=== PATIENT | female | born 1960 | race Caucasian/White ===

== ENCOUNTER → 2016-06-23 | Outpatient (CLI) | payer OTHER ==
[~2016-06-23] MED LIST: ACTOS15 M1 PO; ALBUTEROL0.09 MG/A2 IH; ANAPROX DS550 MG PO; ASPIRIN81 M1 PO; ATIVAN0.5 MG; ATIVAN0.5 MG PO; ATIVAN1 MG PO; BACTRIM DS 8001 TA1 PO; CIPRO500 MG PO; CLINDAMYCIN HC300 MG PO; DARVOCET N 1001 TAB PO; DELTASONE20 M1 PO; DUONEB 3 MG/3 ML3 M1 INH; EES400 MG PO; FLEXERIL10 MG PO; FLEXERIL5 MG; FLEXERIL5 MG PO; FLONASE ALLERG9.9 ML NS; HYDROCODONE BIT1 T11 PO; LANTUS SOLOS100 U/M1 SC; LANTUS100 U/ML SC; LISINOPRIL10 MG; LOMOTIL 0.025 M1 TA1 PO; LORAZEPAM1 MG PO; MACROBID100 M1 PO; MEDROL DOSEPAK4 MG PO; METFORMIN1000 MG PO; MONISTAT MR; MOTRIN600 MG PO; MOTRIN800 MG PO; NAPROSYN500 MG PO; NEURONTIN300 MG PO; NORCO 325 MG-51 TAB PO; NORCO 5-325 TA1 EACH PO; NOVOLOG FLEX100 U/ML SC; PEPCID20 MG PO; PRAVACHOL40 MG PO; PREDNICOT20 MG PO; PREDNISONE10 MG PO; PRILOSEC20 MG PO; ROBITUSSIN AC 110 ML PO; SIMVASTATIN80 MG; TORADOL10 MG PO; TRAMADOL HCL50 MG PO; ULTRAM50 MG PO; VENTOLIN H0.09 MG/AC INH; VICODIN 5/500 505 MG PO; ZITHROMAX Z PA250 MG PO; ZOFRAN ODT4 MG SL
== END | disposition home or self-care (01) ==
LOC: RAD 11:08
DX: B86 Scabies (principal); E11.9 Type 2 diabetes mellitus without complications; J40 Bronchitis, not specified as acute or chronic; F17.200 Nicotine dependence, unspecified, uncomplicated

== ENCOUNTER 2016-09-07 11:34 | Emergency (ER) | payer OTHER ==
[~2016-09-07] VITALS: Wt 81.6 kg
[2016-09-07 11:57] LABS: BILIRUBIN NEGATIVE (NEGATIVE); BLOOD TRACE-INTACT (NEGATIVE); CLARITY SL CLOUDY (CLEAR); COLOR YELLOW (YELLOW); GLUCOSE NEGATIVE (NEGATIVE); KETONE NEGATIVE (NEGATIVE); LEUKO ESTERASE 2+ (NEGATIVE); NITRITE NEGATIVE (NEGATIVE); PH 5.5 (5.0-9.0); PROTEIN NEGATIVE (NEGATIVE); SPECIFIC GRAVITY 1.015 (1.005-1.030); UROBILINOGEN 0.2 E.U./dl (0.2-1.0)
[2016-09-07 12:04] LABS: BACTERIA 2+; EPITHELIAL CELLS 21-30; URINE REFLEX COMMENT YES (NO); WBC 31-40 wbc/hpf (0-5)
[2016-09-07 12:11] LABS: BASO % 0.1 % (0.0-1.0); EOS # 0.2 10*3/uL (0.0-0.4); EOS % 2.4 % (1.0-4.0); HEMATOCRIT 40.6 % (37.0-47.0); LYMPH # 3.6 10*3/uL (1.3-4.4); LYMPH % 37.8 % (27.0-41.0); MEAN CORPUSCULAR HGB 27.9 pg (27.0-31.0); MEAN CORPUSCULAR HGB CONC 34.5 g/dl (33.0-37.0); MEAN PLATELET VOLUME 8.9 fl (9.6-12.3); MONO # 0.4 10*3/uL (0.1-1.0); MONO % 4.4 % (3.0-9.0); NEUT # 5.2 10*3/uL (2.3-7.9); NEUT % 54.9 % (47.0-73.0); PLATELET COUNT AUTOMATED 261 10*3/uL (130-400); RED BLOOD COUNT 5.01 10*6/uL (4.10-5.10); RED CELL DISTRI WIDTH 14.1 % (0-14.5); WHITE BLOOD COUNT 9.4 10*3/uL (4.8-10.8)
[2016-09-07 12:31] LABS: ALBUMIN 3.4 gm/dl (3.1-4.5); ALKALINE PHOSPHATASE 69 U/L (45-117); BILIRUBIN, TOTAL 0.3 mg/dl (0.2-1.0); BUN 6 mg/dl (7-24); CARBON DIOXIDE 26 mmol/L (21-32); CHLORIDE 103 mmol/L (98-107); EST GLOM FILT AFRICAN AMERICAN > 60 ml/min; GLUCOSE 187 mg/dL (65-99); POTASSIUM 3.6 mmol/L (3.5-5.1); SGOT/AST 10 IU/L (3-35); SGPT/ALT 14 U/L (12-78); SODIUM 140 mmol/L (136-145); TOTAL PROTEIN 6.4 gm/dL (6.4-8.2)
== END 2016-09-07 14:58 | disposition home or self-care (01) ==
LOC: ED 11:34
PROVIDERS: Emergency Medicine; Registered Nurse
DX: A08.4 Viral intestinal infection, unspecified (principal); N28.89 Other specified disorders of kidney and ureter; F17.200 Nicotine dependence, unspecified, uncomplicated; Z79.82 Long term (current) use of aspirin; Z90.49 Acquired absence of other specified parts of digestive tract; Z88.0 Allergy status to penicillin; Z88.8 Allergy status to other drugs, medicaments and biological substances

== ENCOUNTER → 2016-09-20 | Outpatient (CLI) | payer OTHER | END | disposition home or self-care (01) | LOC: US 14:09 | DX: N28.89 Other specified disorders of kidney and ureter (principal) ==

== ENCOUNTER 2016-10-03 14:28 | Emergency (ER) | payer OTHER ==
[~2016-10-03] VITALS: Wt 83.0 kg
[2016-10-03 15:17] LABS: BASO % 0.2 % (0.0-1.0); EOS # 0.2 10*3/uL (0.0-0.4); EOS % 2.2 % (1.0-4.0); HEMATOCRIT 43.3 % (37.0-47.0); HEMOGLOBIN 14.7 g/dl (12.0-16.0); LYMPH # 4.9 10*3/uL (1.3-4.4); LYMPH % 46.7 % (27.0-41.0); MEAN CELL VOLUME 81.1 fl (81.0-99.0); MEAN CORPUSCULAR HGB 27.5 pg (27.0-31.0); MEAN CORPUSCULAR HGB CONC 33.9 g/dl (33.0-37.0); MEAN PLATELET VOLUME 9.1 fl (9.6-12.3); MONO # 0.5 10*3/uL (0.1-1.0); MONO % 4.5 % (3.0-9.0); NEUT # 4.9 10*3/uL (2.3-7.9); NEUT % 46.2 % (47.0-73.0); PLATELET COUNT AUTOMATED 316 10*3/uL (130-400); RED BLOOD COUNT 5.34 10*6/uL (4.10-5.10); RED CELL DISTRI WIDTH 13.7 % (0-14.5); WHITE BLOOD COUNT 10.5 10*3/uL (4.8-10.8)
[2016-10-03 15:31] LABS: ALBUMIN 3.5 gm/dl (3.1-4.5); ALKALINE PHOSPHATASE 73 U/L (45-117); BILIRUBIN, TOTAL 0.3 mg/dl (0.2-1.0); BUN 6 mg/dl (7-24); CARBON DIOXIDE 27 mmol/L (21-32); CHLORIDE 103 mmol/L (98-107); EST GLOM FILT AFRICAN AMERICAN > 60 ml/min; GLUCOSE 175 mg/dL (65-99); POTASSIUM 3.5 mmol/L (3.5-5.1); SGOT/AST 9 IU/L (3-35); SGPT/ALT 12 U/L (12-78); SODIUM 143 mmol/L (136-145); TOTAL PROTEIN 7.1 gm/dL (6.4-8.2)
[2016-10-03 15:31] LABS: BILIRUBIN NEGATIVE (NEGATIVE); BLOOD TRACE-INTACT (NEGATIVE); CLARITY CLEAR (CLEAR); COLOR YELLOW (YELLOW); GLUCOSE NEGATIVE (NEGATIVE); KETONE NEGATIVE (NEGATIVE); LEUKO ESTERASE 2+ (NEGATIVE); NITRITE NEGATIVE (NEGATIVE); PH 5.5 (5.0-9.0); PROTEIN NEGATIVE (NEGATIVE); SPECIFIC GRAVITY <= 1.005 (1.005-1.030); UROBILINOGEN 0.2 E.U./dl (0.2-1.0)
[2016-10-03 15:45] LABS: BACTERIA 1+; URINE REFLEX COMMENT YES (NO)
[2016-10-03] MEDS ORDERED: CIPRO500 MG PO (15:59)
== END 2016-10-03 16:03 | disposition home or self-care (01) ==
LOC: ED 14:28
PROVIDERS: Physician Assistant
DX: N30.01 Acute cystitis with hematuria (principal); F17.200 Nicotine dependence, unspecified, uncomplicated; Z90.710 Acquired absence of both cervix and uterus; Z98.890 Other specified postprocedural states; Z79.82 Long term (current) use of aspirin; Z79.899 Other long term (current) drug therapy; Z88.8 Allergy status to other drugs, medicaments and biological substances; Z88.0 Allergy status to penicillin; Z88.1 Allergy status to other antibiotic agents

== ENCOUNTER → 2016-10-10 | Outpatient (CLI) | payer OTHER | END | disposition home or self-care (01) | LOC: MRI 13:33 | DX: R10.33 Periumbilical pain (principal); R10.32 Left lower quadrant pain; N28.9 Disorder of kidney and ureter, unspecified; E11.9 Type 2 diabetes mellitus without complications ==

== ENCOUNTER → 2016-11-02 | Outpatient (CLI) | payer OTHER ==
[2016-11-02 12:27] LABS: BASO % 0.1 % (0.0-1.0); EOS # 0.2 10*3/uL (0.0-0.4); EOS % 2.6 % (1.0-4.0); HEMATOCRIT 43.1 % (37.0-47.0); HEMOGLOBIN 14.4 g/dl (12.0-16.0); LYMPH # 3.4 10*3/uL (1.3-4.4); LYMPH % 45.7 % (27.0-41.0); MEAN CELL VOLUME 80.9 fl (81.0-99.0); MEAN CORPUSCULAR HGB CONC 33.4 g/dl (33.0-37.0); MEAN PLATELET VOLUME 9.5 fl (9.6-12.3); MONO # 0.4 10*3/uL (0.1-1.0); MONO % 4.7 % (3.0-9.0); NEUT # 3.5 10*3/uL (2.3-7.9); NEUT % 46.8 % (47.0-73.0); PLATELET COUNT AUTOMATED 226 10*3/uL (130-400); RED BLOOD COUNT 5.33 10*6/uL (4.10-5.10); RED CELL DISTRI WIDTH 13.9 % (0-14.5); WHITE BLOOD COUNT 7.4 10*3/uL (4.8-10.8)
[2016-11-02 12:42] LABS: ALKALINE PHOSPHATASE 71 U/L (45-117); BUN 9 mg/dl (7-24); EST GLOM FILT AFRICAN AMERICAN > 60 ml/min; LDH 147 U/L (84-246); SGOT/AST 8 IU/L (3-35); SGPT/ALT 16 U/L (12-78)
== END | disposition home or self-care (01) ==
LOC: LAB 11:54
DX: C69.31 Malignant neoplasm of right choroid (principal)

== ENCOUNTER → 2016-11-19 | Outpatient (CLI) | payer OTHER ==
[2016-11-19 10:48] LABS: POTASSIUM 3.4 mmol/L (3.5-5.1)
== END | disposition home or self-care (01) ==
LOC: LAB 09:51
PROVIDERS: Ophthalmology
DX: C69.31 Malignant neoplasm of right choroid (principal)

== ENCOUNTER → 2016-11-22 | Outpatient (CLI) | payer OTHER ==
[2016-11-22 12:25] LABS: BASO % 0.1 % (0.0-1.0); EOS # 0.2 10*3/uL (0.0-0.4); EOS % 2.4 % (1.0-4.0); HEMATOCRIT 41.1 % (37.0-47.0); HEMOGLOBIN 13.5 g/dl (12.0-16.0); LYMPH # 3.5 10*3/uL (1.3-4.4); LYMPH % 41.5 % (27.0-41.0); MEAN CELL VOLUME 83.9 fl (81.0-99.0); MEAN CORPUSCULAR HGB 27.6 pg (27.0-31.0); MEAN CORPUSCULAR HGB CONC 32.8 g/dl (33.0-37.0); MEAN PLATELET VOLUME 9.1 fl (9.6-12.3); MONO # 0.3 10*3/uL (0.1-1.0); MONO % 3.8 % (3.0-9.0); NEUT # 4.3 10*3/uL (2.3-7.9); PLATELET COUNT AUTOMATED 229 10*3/uL (130-400); RED CELL DISTRI WIDTH 14.6 % (0-14.5); WHITE BLOOD COUNT 8.4 10*3/uL (4.8-10.8)
[2016-11-22 12:51] LABS: PROTHROMBIN TIME 10.7 SECONDS (9.0-12.4)
[2016-11-22 12:52] LABS: ALBUMIN 3.4 gm/dl (3.1-4.5); ALKALINE PHOSPHATASE 57 U/L (45-117); BILIRUBIN, DIRECT < 0.1 mg/dL (0.0-0.2); BILIRUBIN, TOTAL 0.3 mg/dl (0.2-1.0); BUN 9 mg/dl (7-24); CARBON DIOXIDE 28 mmol/L (21-32); CHLORIDE 107 mmol/L (98-107); EST GLOM FILT AFRICAN AMERICAN > 60 ml/min; GLUCOSE 142 mg/dL (65-99); POTASSIUM 3.7 mmol/L (3.5-5.1); SGOT/AST 8 IU/L (3-35); SGPT/ALT 13 U/L (12-78); SODIUM 145 mmol/L (136-145); TOTAL PROTEIN 6.6 gm/dL (6.4-8.2)
== END | disposition home or self-care (01) ==
LOC: LAB 11:51
PROVIDERS: Internal Medicine
DX: Z01.818 Encounter for other preprocedural examination (principal); E11.9 Type 2 diabetes mellitus without complications; J44.9 Chronic obstructive pulmonary disease, unspecified; K76.0 Fatty (change of) liver, not elsewhere classified; Z86.73 Personal history of transient ischemic attack (TIA), and cerebral infarction without residual deficits; Z87.891 Personal history of nicotine dependence

== ENCOUNTER → 2016-11-23 | Outpatient (CLI) | payer OTHER ==
--- NOTE | ~2016-11-23 | PF ---
[place], [place] PULMONARY FUNCTION TEST NAME: VIKTORIYA HILLS UNIT #: [id number] ROOM: DOCTOR: JOHN COELLO MD,RAUL BIRTHDATE: [birth year] DOS: 11/23/2016 The test was ordered by Dr. Codi Carmona for surgical clearance with history of COPD. HISTORY: The patient reported as 56-year-old female, height of 62 inches, weight 189 pounds. The patient reported symptoms of dyspnea with exertion, productive cough, rare wheezing, tobacco use, 2 packs of cigarettes per day for 44 years also noted. SPIROMETRY: The FVC was recorded 1.99 liters, 64% predicted value, moderately decreased without changes postbronchodilator. The FEV1 noted 1.64 liters, 68% predicted value, moderately decreased without any significant post-bronchodilator change. Flow volume was suggestive of obstructive airway pattern. LUNG VOLUME: Thoracic gas volume recorded as 105%, residual volume 109%, total lung capacity 83%. RV/TLC ratio 134% consistent with mild airtrapping. Otherwise lung volumes were noted normal. The patient's lung diffusion noted mild to moderate reduction without correction of carbon monoxide or hemoglobin values. The patient's airway resistance and passive conductance noted normal with partial improvement post-bronchodilator test. FINAL IMPRESSION: 1. The test was suggestive of possibility of mild reversible obstructive lung disease such as bronchial asthma. 2. Mild to moderate reduction in lung diffusion to be clinically correlated with the patient's clinical history for this patient and radiology data for this patient. RAUL LOPEZ MD CM:PFREPORT:PULMONARY FUNCTION TEST [id number] RAUL COELLO MD
== END | disposition home or self-care (01) ==
LOC: CP 11:06
DX: Z01.818 Encounter for other preprocedural examination (principal); J44.9 Chronic obstructive pulmonary disease, unspecified

== ENCOUNTER → 2016-11-26 | Outpatient (CLI) | payer OTHER | END | disposition home or self-care (01) | LOC: CT 01:56 | DX: Z01.818 Encounter for other preprocedural examination (principal); C69.31 Malignant neoplasm of right choroid; J44.9 Chronic obstructive pulmonary disease, unspecified; I25.10 Atherosclerotic heart disease of native coronary artery without angina pectoris ==

== ENCOUNTER 2017-03-27 11:43 | Emergency (ER) | payer OTHER ==
[~2017-03-27] VITALS: Wt 77.1 kg
[2017-03-27 12:01] LABS: BILIRUBIN NEGATIVE (NEGATIVE); BLOOD TRACE-INTACT (NEGATIVE); CLARITY CLEAR (CLEAR); COLOR YELLOW (YELLOW); GLUCOSE NEGATIVE (NEGATIVE); KETONE NEGATIVE (NEGATIVE); LEUKO ESTERASE 1+ (NEGATIVE); NITRITE NEGATIVE (NEGATIVE); SPECIFIC GRAVITY <= 1.005 (1.005-1.030); UROBILINOGEN 0.2 E.U./dl (0.2-1.0)
[2017-03-27 12:06] LABS: BACTERIA TRACE
[2017-03-27 12:11] LABS: BASO % 0.2 % (0.0-1.0); EOS # 0.2 10*3/uL (0.0-0.4); EOS % 2.3 % (1.0-4.0); HEMATOCRIT 40.5 % (37.0-47.0); HEMOGLOBIN 13.1 g/dl (12.0-16.0); LYMPH # 2.8 10*3/uL (1.3-4.4); LYMPH % 34.1 % (27.0-41.0); MEAN CELL VOLUME 85.3 fl (81.0-99.0); MEAN CORPUSCULAR HGB 27.6 pg (27.0-31.0); MEAN CORPUSCULAR HGB CONC 32.3 g/dl (33.0-37.0); MEAN PLATELET VOLUME 9.1 fl (9.6-12.3); MONO # 0.4 10*3/uL (0.1-1.0); MONO % 5.2 % (3.0-9.0); NEUT # 4.7 10*3/uL (2.3-7.9); NEUT % 57.7 % (47.0-73.0); PLATELET COUNT AUTOMATED 246 10*3/uL (130-400); RED BLOOD COUNT 4.75 10*6/uL (4.10-5.10); WHITE BLOOD COUNT 8.1 10*3/uL (4.8-10.8)
[2017-03-27 12:27] LABS: ALBUMIN 3.2 gm/dl (3.1-4.5); ALKALINE PHOSPHATASE 72 U/L (45-117); BUN 14 mg/dl (7-24); CHLORIDE 106 mmol/L (98-107); CREATININE 0.62 mg/dL (0.55-1.02); POTASSIUM 3.6 mmol/L (3.5-5.1); SGOT/AST 9 IU/L (3-35); SGPT/ALT 13 U/L (12-78); SODIUM 140 mmol/L (136-145); TOTAL PROTEIN 6.9 gm/dL (6.4-8.2)
[2017-03-27] MEDS ORDERED: Bactrim DS PO (13:29)
[2017-03-27] MEDS ORDERED: 'PARAFON FORTE500 M1 PO (13:29)
[2017-03-27] MEDS ORDERED: PYRIDIUM200 M1 PO (13:29)
== END 2017-03-27 14:29 | disposition home or self-care (01) ==
LOC: ED 11:43
PROVIDERS: Nurse Practitioner Family
DX: C64.1 Malignant neoplasm of right kidney, except renal pelvis (principal); N39.0 Urinary tract infection, site not specified; F17.200 Nicotine dependence, unspecified, uncomplicated; K21.9 Gastro-esophageal reflux disease without esophagitis; J44.9 Chronic obstructive pulmonary disease, unspecified; Z79.82 Long term (current) use of aspirin; Z90.49 Acquired absence of other specified parts of digestive tract; Z88.0 Allergy status to penicillin

== ENCOUNTER 2017-05-11 14:51 | Emergency (ER) | payer OTHER ==
[~2017-05-11] VITALS: Ht 157.4 cm; Wt 79.4 kg
[~2017-05-11 14:51] MED LIST changes: +'PARAFON FORTE500 M1 PO; +Bactrim DS PO; +PYRIDIUM200 M1 PO
[2017-05-11] MEDS ORDERED: CYCLOBENZAPRINE5 M3 PO (16:10)
== END 2017-05-11 16:30 | disposition home or self-care (01) ==
LOC: ED 14:51
DX: S39.012A Strain of muscle, fascia and tendon of lower back, initial encounter (principal); F17.200 Nicotine dependence, unspecified, uncomplicated; Z90.710 Acquired absence of both cervix and uterus; Z98.890 Other specified postprocedural states; Z79.82 Long term (current) use of aspirin; Z79.899 Other long term (current) drug therapy; Z88.8 Allergy status to other drugs, medicaments and biological substances; Z88.0 Allergy status to penicillin; Z88.1 Allergy status to other antibiotic agents; X50.1XXA Overexertion from prolonged static or awkward postures, initial encounter; Y93.89 Activity, other specified; Y92.89 Other specified places as the place of occurrence of the external cause; Y99.9 Unspecified external cause status

== ENCOUNTER 2017-09-05 14:28 | Emergency (ER) | payer OTHER ==
[~2017-09-05] VITALS: Ht 157.4 cm; Wt 81.6 kg
[~2017-09-05 14:28] MED LIST changes: +CYCLOBENZAPRINE5 M3 PO
[2017-09-05 14:46] LABS: BILIRUBIN NEGATIVE (NEGATIVE); BLOOD NEGATIVE (NEGATIVE); CLARITY CLOUDY (CLEAR); COLOR YELLOW (YELLOW); GLUCOSE TRACE (NEGATIVE); KETONE NEGATIVE (NEGATIVE); LEUKO ESTERASE 1+ (NEGATIVE); NITRITE NEGATIVE (NEGATIVE); SPECIFIC GRAVITY 1.025 (1.005-1.030); UROBILINOGEN 0.2 E.U./dl (0.2-1.0)
[2017-09-05 14:54] LABS: BACTERIA 3+; EPITHELIAL CELLS 55-60
[2017-09-05] MEDS ORDERED: MACROBID100 M1 PO (14:57)
== END 2017-09-05 15:06 | disposition home or self-care (01) ==
LOC: ED 14:28
PROVIDERS: Physician Assistant
DX: S30.1XXA Contusion of abdominal wall, initial encounter (principal); N30.00 Acute cystitis without hematuria; F17.200 Nicotine dependence, unspecified, uncomplicated; Z88.0 Allergy status to penicillin; Z88.1 Allergy status to other antibiotic agents; Z88.8 Allergy status to other drugs, medicaments and biological substances; Z79.899 Other long term (current) drug therapy; Z79.82 Long term (current) use of aspirin; W50.1XXA Accidental kick by another person, initial encounter; Y93.89 Activity, other specified; Y92.89 Other specified places as the place of occurrence of the external cause; Y99.8 Other external cause status

== ENCOUNTER 2018-04-14 14:08 | Emergency (ER) | payer OTHER ==
[~2018-04-14] VITALS: Ht 157.4 cm; Wt 81.6 kg
[2018-04-14 15:08] LABS: BILIRUBIN NEGATIVE (NEGATIVE); BLOOD NEGATIVE (NEGATIVE); CLARITY CLEAR (CLEAR); COLOR YELLOW (YELLOW); GLUCOSE NEGATIVE (NEGATIVE); KETONE NEGATIVE (NEGATIVE); LEUKO ESTERASE 2+ (NEGATIVE); NITRITE NEGATIVE (NEGATIVE); UROBILINOGEN 0.2 E.U./dl (0.2-1.0)
[2018-04-14 15:27] LABS: RBC 0-2 rbc/hpf (0-2); WBC 21-30 wbc/hpf (0-5)
[2018-04-14 15:28] LABS: BACTERIA 2+; EPITHELIAL CELLS 20-25
[2018-04-14] MEDS ORDERED: MACROBID100 M1 PO (16:21)
[2018-04-14] MEDS ORDERED: TRAMADOL HCL50 MG PO (16:21)
[2018-04-14] MEDS ORDERED: NORCO 5-325 TA1 EACH PO (16:42)
== END 2018-04-14 16:29 | disposition home or self-care (01) ==
LOC: ED 14:08
PROVIDERS: Nurse Practitioner Family
DX: S29.012A Strain of muscle and tendon of back wall of thorax, initial encounter (principal); N39.0 Urinary tract infection, site not specified; G89.29 Other chronic pain; J44.9 Chronic obstructive pulmonary disease, unspecified; K21.9 Gastro-esophageal reflux disease without esophagitis; F17.200 Nicotine dependence, unspecified, uncomplicated; Z88.0 Allergy status to penicillin; Z88.1 Allergy status to other antibiotic agents; Z88.8 Allergy status to other drugs, medicaments and biological substances; Z79.2 Long term (current) use of antibiotics; Z79.82 Long term (current) use of aspirin; Z79.899 Other long term (current) drug therapy; Z79.84 Long term (current) use of oral hypoglycemic drugs; Z90.49 Acquired absence of other specified parts of digestive tract; Z90.710 Acquired absence of both cervix and uterus; Z85.528 Personal history of other malignant neoplasm of kidney; X58.XXXA Exposure to other specified factors, initial encounter; Y93.89 Activity, other specified; Y92.098 Other place in other non-institutional residence as the place of occurrence of the external cause; Y99.8 Other external cause status

== ENCOUNTER → 2018-06-20 | Outpatient (CLI) | payer OTHER ==
[2018-06-20 16:20] LABS: BASO % 0.1 % (0.0-1.0); EOS # 0.1 10*3/uL (0.0-0.4); EOS % 1.7 % (1.0-4.0); HEMATOCRIT 40.4 % (37.0-47.0); LYMPH # 2.4 10*3/uL (1.3-4.4); LYMPH % 32.6 % (27.0-41.0); MEAN CELL VOLUME 86.5 fl (81.0-99.0); MEAN CORPUSCULAR HGB 27.8 pg (27.0-31.0); MEAN CORPUSCULAR HGB CONC 32.2 g/dl (33.0-37.0); MEAN PLATELET VOLUME 9.4 fl (9.6-12.3); MONO # 0.4 10*3/uL (0.1-1.0); MONO % 5.2 % (3.0-9.0); NEUT # 4.5 10*3/uL (2.3-7.9); NEUT % 59.9 % (47.0-73.0); NUCLEATED RED BLOOD CELL 0.3 % (0.0-0.0); PLATELET COUNT AUTOMATED 289 10*3/uL (130-400); RED BLOOD COUNT 4.67 10*6/uL (4.10-5.10); RED CELL DISTRI WIDTH 16.1 % (0-14.5); WHITE BLOOD COUNT 7.5 10*3/uL (4.8-10.8)
== END | disposition home or self-care (01) ==
LOC: LAB 15:53
PROVIDERS: Internal Medicine Nephrology
DX: K92.1 Melena (principal)

== ENCOUNTER 2018-06-24 14:25 | Emergency (ER) | payer OTHER ==
[~2018-06-24] VITALS: Ht 157.4 cm; Wt 90.7 kg
[2018-06-24 15:03] LABS: BILIRUBIN NEGATIVE (NEGATIVE); BLOOD TRACE-INTACT (NEGATIVE); CLARITY CLEAR (CLEAR); COLOR YELLOW (YELLOW); GLUCOSE NEGATIVE (NEGATIVE); KETONE NEGATIVE (NEGATIVE); LEUKO ESTERASE 2+ (NEGATIVE); NITRITE NEGATIVE (NEGATIVE); PH 5.5 (5.0-9.0); UROBILINOGEN 0.2 E.U./dl (0.2-1.0)
[2018-06-24 15:52] LABS: BACTERIA TRACE; EPITHELIAL CELLS TNTC
[2018-06-24] MEDS ORDERED: NORCO 5-325 TA1 EACH PO (16:34)
[2018-06-24] MEDS ORDERED: MACROBID100 M1 PO ×2 (16:35→16:43)
== END 2018-06-24 16:37 | disposition home or self-care (01) ==
LOC: ED 14:25
PROVIDERS: Nurse Practitioner Family
DX: M43.16 Spondylolisthesis, lumbar region (principal); N39.0 Urinary tract infection, site not specified; M54.2 Cervicalgia; G89.29 Other chronic pain; J44.9 Chronic obstructive pulmonary disease, unspecified; K21.9 Gastro-esophageal reflux disease without esophagitis; Z88.8 Allergy status to other drugs, medicaments and biological substances; Z88.0 Allergy status to penicillin; Z88.1 Allergy status to other antibiotic agents; Z79.2 Long term (current) use of antibiotics; Z79.82 Long term (current) use of aspirin; Z79.899 Other long term (current) drug therapy; Z79.84 Long term (current) use of oral hypoglycemic drugs; Z90.710 Acquired absence of both cervix and uterus; Z90.49 Acquired absence of other specified parts of digestive tract

== ENCOUNTER 2018-07-01 15:06 | Emergency (ER) | payer OTHER ==
[~2018-07-01] VITALS: Ht 157.4 cm; Wt 90.7 kg
[2018-07-01 15:43] LABS: BASO % 0.2 % (0.0-1.0); EOS # 0.2 10*3/uL (0.0-0.4); EOS % 1.9 % (1.0-4.0); HEMATOCRIT 40.4 % (37.0-47.0); HEMOGLOBIN 12.8 g/dl (12.0-16.0); LYMPH # 2.9 10*3/uL (1.3-4.4); LYMPH % 34.2 % (27.0-41.0); MEAN CELL VOLUME 87.6 fl (81.0-99.0); MEAN CORPUSCULAR HGB 27.8 pg (27.0-31.0); MEAN CORPUSCULAR HGB CONC 31.7 g/dl (33.0-37.0); MEAN PLATELET VOLUME 9.4 fl (9.6-12.3); MONO # 0.4 10*3/uL (0.1-1.0); MONO % 4.9 % (3.0-9.0); NEUT # 4.9 10*3/uL (2.3-7.9); NEUT % 58.4 % (47.0-73.0); PLATELET COUNT AUTOMATED 378 10*3/uL (130-400); RED BLOOD COUNT 4.61 10*6/uL (4.10-5.10); RED CELL DISTRI WIDTH 15.9 % (0-14.5); WHITE BLOOD COUNT 8.3 10*3/uL (4.8-10.8)
[2018-07-01 15:49] LABS: BILIRUBIN NEGATIVE (NEGATIVE); BLOOD TRACE-INTACT (NEGATIVE); CLARITY CLEAR (CLEAR); COLOR YELLOW (YELLOW); GLUCOSE NEGATIVE (NEGATIVE); KETONE NEGATIVE (NEGATIVE); LEUKO ESTERASE 2+ (NEGATIVE); NITRITE NEGATIVE (NEGATIVE); SPECIFIC GRAVITY <= 1.005 (1.005-1.030); UROBILINOGEN 0.2 E.U./dl (0.2-1.0)
[2018-07-01 16:00] LABS: BACTERIA 2+; RBC 0-2 rbc/hpf (0-2); WBC 16-20 wbc/hpf (0-5)
[2018-07-01 16:00] LABS: ALBUMIN 3.1 gm/dl (3.1-4.5); ALKALINE PHOSPHATASE 88 U/L (45-117); BUN 5 mg/dl (7-24); CHLORIDE 103 mmol/L (98-107); CREATININE 0.58 mg/dL (0.55-1.02); LIPASE 54 U/L (73-393); POTASSIUM 3.9 mmol/L (3.5-5.1); SGOT/AST 9 IU/L (3-35); SGPT/ALT 14 U/L (12-78); SODIUM 138 mmol/L (136-145)
[2018-07-01] MEDS ORDERED: MEDROL DOSEPAK4 MG PO (18:14)
== END 2018-07-01 18:25 | disposition home or self-care (01) ==
LOC: ED 15:06
PROVIDERS: Physician Assistant
DX: N28.9 Disorder of kidney and ureter, unspecified (principal); R10.12 Left upper quadrant pain; M54.6 Pain in thoracic spine; M54.5 Low back pain; F17.200 Nicotine dependence, unspecified, uncomplicated; Z88.0 Allergy status to penicillin; Z88.1 Allergy status to other antibiotic agents; Z88.8 Allergy status to other drugs, medicaments and biological substances; Z79.899 Other long term (current) drug therapy; Z79.82 Long term (current) use of aspirin; Z90.49 Acquired absence of other specified parts of digestive tract; Z85.528 Personal history of other malignant neoplasm of kidney

== ENCOUNTER → 2018-10-22 | Outpatient (CLI) | payer OTHER ==
[~2018-10-22] MED LIST changes: +SEPTDS PO
[2018-10-22 15:45] LABS: CREATININE 0.75 mg/dL (0.55-1.02)
== END | disposition home or self-care (01) ==
LOC: LAB 14:53
PROVIDERS: Radiology Diagnostic Radiology
DX: N28.89 Other specified disorders of kidney and ureter (principal)

== ENCOUNTER → 2018-10-23 | Outpatient (CLI) | payer OTHER | END | disposition home or self-care (01) | LOC: CT 01:14 | DX: K57.30 Diverticulosis of large intestine without perforation or abscess without bleeding (principal); N28.89 Other specified disorders of kidney and ureter; R31.9 Hematuria, unspecified; R11.0 Nausea; J98.11 Atelectasis; Z90.49 Acquired absence of other specified parts of digestive tract ==

== ENCOUNTER → 2018-10-30 | Outpatient (CLI) | payer OTHER ==
[2018-10-30 13:44] LABS: BASO % 0.1 % (0.0-1.0); EOS # 0.2 10*3/uL (0.0-0.4); EOS % 2.4 % (1.0-4.0); HEMATOCRIT 40.9 % (37.0-47.0); HEMOGLOBIN 12.9 g/dl (12.0-16.0); LYMPH # 2.5 10*3/uL (1.3-4.4); LYMPH % 37.4 % (27.0-41.0); MEAN CELL VOLUME 87.8 fl (81.0-99.0); MEAN CORPUSCULAR HGB 27.7 pg (27.0-31.0); MEAN CORPUSCULAR HGB CONC 31.5 g/dl (33.0-37.0); MEAN PLATELET VOLUME 9.8 fl (9.6-12.3); MONO # 0.3 10*3/uL (0.1-1.0); MONO % 4.6 % (3.0-9.0); NEUT # 3.7 10*3/uL (2.3-7.9); NEUT % 55.2 % (47.0-73.0); PLATELET COUNT AUTOMATED 270 10*3/uL (130-400); RED BLOOD COUNT 4.66 10*6/uL (4.10-5.10); RED CELL DISTRI WIDTH 15.3 % (0-14.5); WHITE BLOOD COUNT 6.7 10*3/uL (4.8-10.8)
[2018-10-30 13:53] LABS: BILIRUBIN NEGATIVE (NEGATIVE); BLOOD NEGATIVE (NEGATIVE); CLARITY CLEAR (CLEAR); COLOR YELLOW (YELLOW); GLUCOSE NEGATIVE (NEGATIVE); KETONE NEGATIVE (NEGATIVE); LEUKO ESTERASE 2+ (NEGATIVE); NITRITE NEGATIVE (NEGATIVE); PH 7.5 (5.0-9.0)
[2018-10-30 14:03] LABS: BACTERIA 1+
[2018-10-30 14:10] LABS: ALBUMIN 3.3 gm/dl (3.1-4.5); ALKALINE PHOSPHATASE 77 U/L (45-117); BUN 8 mg/dl (7-24); CHLORIDE 107 mmol/L (98-107); CREATININE 0.67 mg/dL (0.55-1.02); POTASSIUM 3.9 mmol/L (3.5-5.1); SGOT/AST 9 IU/L (3-35); SGPT/ALT 12 U/L (12-78); SODIUM 144 mmol/L (136-145); TOTAL PROTEIN 6.8 gm/dL (6.4-8.2)
== END | disposition home or self-care (01) ==
LOC: LAB 12:57
PROVIDERS: Nurse Practitioner Family
DX: C64.9 Malignant neoplasm of unspecified kidney, except renal pelvis (principal)

== ENCOUNTER 2019-01-02 15:27 | Emergency (ER) | payer OTHER ==
[~2019-01-02] VITALS: Ht 157.4 cm; Wt 90.7 kg
[2019-01-02 15:59] LABS: BILIRUBIN NEGATIVE (NEGATIVE); BLOOD NEGATIVE (NEGATIVE); CLARITY CLEAR (CLEAR); COLOR YELLOW (YELLOW); GLUCOSE NEGATIVE (NEGATIVE); KETONE NEGATIVE (NEGATIVE); LEUKO ESTERASE 1+ (NEGATIVE); NITRITE NEGATIVE (NEGATIVE); PH 6.5 (5.0-9.0); SPECIFIC GRAVITY <= 1.005 (1.005-1.030); UROBILINOGEN 0.2 E.U./dl (0.2-1.0)
[2019-01-02] MEDS ORDERED: SEPTDS PO (16:02)
[2019-01-02] MEDS ORDERED: PYRIDIUM200 M1 PO (16:03)
[2019-01-02 16:17] LABS: BACTERIA TRACE
== END 2019-01-02 16:22 | disposition home or self-care (01) ==
LOC: ED 15:27
PROVIDERS: Nurse Practitioner Family
DX: N39.0 Urinary tract infection, site not specified (principal); L08.82 Omphalitis not of newborn; Z88.1 Allergy status to other antibiotic agents; Z88.0 Allergy status to penicillin; Z79.2 Long term (current) use of antibiotics; Z79.899 Other long term (current) drug therapy; Z79.82 Long term (current) use of aspirin; Z90.710 Acquired absence of both cervix and uterus; Z90.49 Acquired absence of other specified parts of digestive tract

== ENCOUNTER 2019-03-08 21:07 | Emergency (ER) | payer OTHER ==
[~2019-03-08] VITALS: Ht 157.4 cm; Wt 102.1 kg
[2019-03-08 22:33] LABS: BILIRUBIN NEGATIVE (NEGATIVE); BLOOD TRACE-INTACT (NEGATIVE); CLARITY CLEAR (CLEAR); COLOR YELLOW (YELLOW); GLUCOSE NEGATIVE (NEGATIVE); KETONE NEGATIVE (NEGATIVE); LEUKO ESTERASE 1+ (NEGATIVE); NITRITE NEGATIVE (NEGATIVE); PH 6.5 (5.0-9.0); SPECIFIC GRAVITY <= 1.005 (1.005-1.030)
[2019-03-08 22:46] LABS: BACTERIA TRACE
[2019-03-08] MEDS ORDERED: ZYRTEC10 MG PO (23:05)
== END 2019-03-08 23:13 | disposition home or self-care (01) ==
LOC: ED 21:07
PROVIDERS: Physician Assistant
DX: H57.89 Other specified disorders of eye and adnexa (principal); R68.2 Dry mouth, unspecified; Z88.0 Allergy status to penicillin; Z88.1 Allergy status to other antibiotic agents; Z88.8 Allergy status to other drugs, medicaments and biological substances; Z79.82 Long term (current) use of aspirin; Z79.899 Other long term (current) drug therapy

== ENCOUNTER 2019-05-12 22:16 | Emergency (ER) | payer OTHER ==
[~2019-05-12] VITALS: Ht 157.4 cm; Wt 90.7 kg
[~2019-05-12 22:16] MED LIST changes: +ZYRTEC10 MG PO
[2019-05-12] MEDS ORDERED: VIBRAMYCIN100 MG PO (22:39)
== END 2019-05-12 23:23 | disposition home or self-care (01) ==
LOC: ED 22:16
DX: J45.909 Unspecified asthma, uncomplicated (principal); I10 Essential (primary) hypertension; E11.9 Type 2 diabetes mellitus without complications; E78.00 Pure hypercholesterolemia, unspecified; M19.90 Unspecified osteoarthritis, unspecified site; F17.200 Nicotine dependence, unspecified, uncomplicated; Z79.899 Other long term (current) drug therapy; Z79.82 Long term (current) use of aspirin; Z88.0 Allergy status to penicillin; Z88.1 Allergy status to other antibiotic agents; Z88.8 Allergy status to other drugs, medicaments and biological substances

== ENCOUNTER → 2020-01-19 | Outpatient (CLI) | payer OTHER ==
[~2020-01-19] MED LIST changes: +VIBRAMYCIN100 MG PO
[2020-01-19 17:09] LABS: BASO % 0.1 % (0.0-1.0); EOS # 0.2 10*3/uL (0.0-0.4); EOS % 2.4 % (1.0-4.0); HEMATOCRIT 42.4 % (37.0-47.0); LYMPH # 2.7 10*3/uL (1.3-4.4); LYMPH % 32.7 % (27.0-41.0); MEAN CELL VOLUME 87.8 fl (81.0-99.0); MEAN CORPUSCULAR HGB 27.5 pg (27.0-31.0); MEAN CORPUSCULAR HGB CONC 31.4 g/dl (33.0-37.0); MEAN PLATELET VOLUME 10.3 fl (9.6-12.3); MONO # 0.4 10*3/uL (0.1-1.0); MONO % 5.1 % (3.0-9.0); NEUT # 4.9 10*3/uL (2.3-7.9); NEUT % 59.2 % (47.0-73.0); PLATELET COUNT AUTOMATED 314 10*3/uL (130-400); RED BLOOD COUNT 4.83 10*6/uL (4.10-5.10); RED CELL DISTRI WIDTH 15.3 % (0-14.5); WHITE BLOOD COUNT 8.3 10*3/uL (4.8-10.8)
[2020-01-19 17:27] LABS: BUN 7 mg/dl (7-24); CHLORIDE 109 mmol/L (98-107); CHOLESTEROL 168 mg/dL (<200); HDL CHOLESTEROL 54 mg/dl (40-60); LDL CHOLESTEROL 72 mg/dL (9-159); POTASSIUM 3.3 mmol/L (3.5-5.1); SODIUM 140 mmol/L (136-145); TRIGLYCERIDES 210 mg/dl (<150); VLDL CHOLESTEROL 42 mg/dL (6-40)
[2020-01-19 19:27] LABS: BILIRUBIN NEGATIVE (NEGATIVE); BLOOD NEGATIVE (NEGATIVE); CLARITY CLEAR (CLEAR); COLOR YELLOW (YELLOW); GLUCOSE NEGATIVE (NEGATIVE); KETONE NEGATIVE (NEGATIVE)
[2020-01-19 19:28] LABS: LEUKO ESTERASE 1+ (NEGATIVE); NITRITE NEGATIVE (NEGATIVE); UROBILINOGEN 0.2 E.U./dl (0.2-1.0)
[2020-01-19 19:35] LABS: BACTERIA 1+; EPITHELIAL CELLS 21-30
== END | disposition home or self-care (01) ==
LOC: LAB 16:31
PROVIDERS: Internal Medicine
DX: R30.0 Dysuria (principal); E11.65 Type 2 diabetes mellitus with hyperglycemia

== ENCOUNTER → 2020-01-27 | Outpatient (CLI) | payer OTHER | END | disposition home or self-care (01) | LOC: CT 01-26 11:00 | DX: N28.89 Other specified disorders of kidney and ureter (principal) ==

== ENCOUNTER → 2021-06-02 | Outpatient (CLI) | payer OTHER | END | disposition home or self-care (01) | LOC: COVID19 16:25 | PROVIDERS: ATTEND Family Medicine | DX: Z20.822 Contact with and (suspected) exposure to COVID-19 (principal) ==

== ENCOUNTER → 2021-10-10 | Outpatient (CLI) | payer OTHER ==
[~2021-10-10] MED LIST changes: +MUCINEX1200 M1 PO; +PREDNISONE50 MG PO; +ZITHROMAX250 MG PO
[2021-10-10 14:00] LABS: CREATININE 0.62 mg/dL (0.55-1.02)
== END | disposition home or self-care (01) ==
LOC: CT 10-03 08:00 → LAB 12:58 → CT 13:00
PROVIDERS: ATTEND Urology
DX: K57.30 Diverticulosis of large intestine without perforation or abscess without bleeding (principal); N28.9 Disorder of kidney and ureter, unspecified

== ENCOUNTER 2021-10-17 11:37 | Emergency (ER) | payer OTHER ==
[~2021-10-17] VITALS: Ht 157.4 cm; Wt 104.3 kg
[~2021-10-17 11:37] MED LIST changes: -MUCINEX1200 M1 PO; -PREDNISONE50 MG PO; -ZITHROMAX250 MG PO
[2021-10-17] MEDS ORDERED: ACTOS15 M1 PO (12:12)
[2021-10-17] MEDS ORDERED: ZITHROMAX250 MG PO (14:58)
[2021-10-17] MEDS ORDERED: MUCINEX1200 M1 PO (14:58)
[2021-10-17] MEDS ORDERED: PREDNISONE50 MG PO (14:58)
== END 2021-10-17 15:02 | disposition home or self-care (01) ==
LOC: ED 11:37
DX: J18.9 Pneumonia, unspecified organism (principal); Z88.0 Allergy status to penicillin; Z88.1 Allergy status to other antibiotic agents; Z88.8 Allergy status to other drugs, medicaments and biological substances; Z79.899 Other long term (current) drug therapy; Z79.82 Long term (current) use of aspirin; Z90.710 Acquired absence of both cervix and uterus; Z90.49 Acquired absence of other specified parts of digestive tract; Z98.890 Other specified postprocedural states

== ENCOUNTER 2022-09-15 20:42 | Emergency (ER) | payer OTHER ==
[~2022-09-15] VITALS: Ht 162.5 cm; Wt 81.6 kg
[~2022-09-15 20:42] MED LIST changes: +MUCINEX1200 M1 PO; +PREDNISONE50 MG PO; +ZITHROMAX250 MG PO
== END 2022-09-15 20:50 | disposition home or self-care (01) ==
LOC: ED 20:42
DX: S86.912A Strain of unspecified muscle(s) and tendon(s) at lower leg level, left leg, initial encounter (principal); S30.0XXA Contusion of lower back and pelvis, initial encounter; E11.42 Type 2 diabetes mellitus with diabetic polyneuropathy; I48.91 Unspecified atrial fibrillation; J45.909 Unspecified asthma, uncomplicated; J44.9 Chronic obstructive pulmonary disease, unspecified; K21.9 Gastro-esophageal reflux disease without esophagitis; I10 Essential (primary) hypertension; B02.29 Other postherpetic nervous system involvement; Z88.0 Allergy status to penicillin; Z88.8 Allergy status to other drugs, medicaments and biological substances; Z88.1 Allergy status to other antibiotic agents; F41.9 Anxiety disorder, unspecified; Z90.710 Acquired absence of both cervix and uterus; Z98.890 Other specified postprocedural states; W07.XXXA Fall from chair, initial encounter; Y93.89 Activity, other specified; Y92.002 Bathroom of unspecified non-institutional (private) residence as the place of occurrence of the external cause; Y99.8 Other external cause status

== ENCOUNTER 2022-10-15 15:11 | Emergency (ER) | payer OTHER ==
[~2022-10-15] VITALS: Ht 157.4 cm; Wt 90.7 kg
[2022-10-15] MEDS ORDERED: LORAZEPAM0.5 M1 PO (15:18)
[2022-10-15 15:45] LABS: BASO % 0.2 % (0.0-1.0); EOS # 0.1 10*3/uL (0.0-0.4); EOS % 1.3 % (1.0-4.0); HEMATOCRIT 40.9 % (37.0-47.0); LYMPH # 2.9 10*3/uL (1.3-4.4); LYMPH % 32.5 % (27.0-41.0); MEAN CELL VOLUME 85.7 fl (81.0-99.0); MEAN CORPUSCULAR HGB 27.7 pg (27.0-31.0); MEAN CORPUSCULAR HGB CONC 32.3 g/dl (33.0-37.0); MEAN PLATELET VOLUME 8.9 fl (9.6-12.3); MONO # 0.3 10*3/uL (0.1-1.0); MONO % 3.8 % (3.0-9.0); NEUT # 5.6 10*3/uL (2.3-7.9); PLATELET COUNT AUTOMATED 340 10*3/uL (130-400); RED BLOOD COUNT 4.77 10*6/uL (4.10-5.10); RED CELL DISTRI WIDTH 15.7 % (0-14.5)
[2022-10-15 16:01] LABS: ALKALINE PHOSPHATASE 74 U/L (46-116); BUN 6 mg/dl (9-23); CHLORIDE 103 mmol/L (98-107); POTASSIUM 3.8 mmol/L (3.4-5.1)
[2022-10-15 16:10] LABS: SGPT/ALT < 7 U/L (10-49)
== END 2022-10-15 16:28 | disposition left against medical advice (07) ==
LOC: ED 15:11
PROVIDERS: Nurse Practitioner Family
DX: M79.601 Pain in right arm (principal); Z88.0 Allergy status to penicillin; Z88.8 Allergy status to other drugs, medicaments and biological substances; Z79.899 Other long term (current) drug therapy; Z79.82 Long term (current) use of aspirin; Z90.710 Acquired absence of both cervix and uterus; Z90.49 Acquired absence of other specified parts of digestive tract; Z98.890 Other specified postprocedural states

== ENCOUNTER 2023-07-13 16:50 | Inpatient (IN) | payer OTHER ==
[2023-07-13] VITALS (9 sets, daily range): BP systolic 103–148; BP diastolic 44–80
[~2023-07-13] VITALS: Ht 157.4 cm; Wt 105.9 kg
[~2023-07-13 16:50] MED LIST changes: +LORAZEPAM0.5 M1 PO
[2023-07-13] MEDS ORDERED: Albuterol Sulf/Ipratropium 3 ML VIAL NEB ONE (17:40)
[2023-07-13 17:55] LABS: BASO % 0.1 % (0.0-1.0); HEMATOCRIT 39.8 % (37.0-47.0); LYMPH # 0.9 10*3/uL (1.3-4.4); LYMPH % 10.6 % (27.0-41.0); MEAN CELL VOLUME 88.4 fl (81.0-99.0); MEAN CORPUSCULAR HGB 26.9 pg (27.0-31.0); MEAN CORPUSCULAR HGB CONC 30.4 g/dl (33.0-37.0); MEAN PLATELET VOLUME 9.2 fl (9.6-12.3); MONO # 0.5 10*3/uL (0.1-1.0); MONO % 6.5 % (3.0-9.0); NEUT # 6.6 10*3/uL (2.3-7.9); NEUT % 82.4 % (47.0-73.0); NUCLEATED RED BLOOD CELL 0.5 % (0.0-0.0); PLATELET COUNT AUTOMATED 233 10*3/uL (130-400); RED CELL DISTRI WIDTH 16.3 % (0-14.5)
[2023-07-13] MEDS ORDERED: AZITHROMYCIN 250 ML IV ONE (18:00)
[2023-07-13] MEDS ORDERED: Ceftriaxone Sodium 1 GM/10 ML SYR IV ONE (18:00)
[2023-07-13 18:19] LABS: ALKALINE PHOSPHATASE 56 U/L (46-116); BUN 12 mg/dl (9-23); CHLORIDE 99 mmol/L (98-107); POTASSIUM 3.3 mmol/L (3.4-5.1)
[2023-07-13 18:20] LABS: SGPT/ALT < 7 U/L (5-49)
[2023-07-13] MEDS ORDERED: FUROSEMIDE 40 MG/4 ML VIAL IV ONE (21:00)
[2023-07-13 21:53] LABS: BILIRUBIN Negative (Negative); BLOOD Trace-Lysed (Negative); CLARITY Cloudy (Clear); COLOR Yellow (Yellow); GLUCOSE 1+ (Negative); KETONE 2+ (Negative); LEUKO ESTERASE Negative (Negative); NITRITE Negative (Negative); PH 5.5 (4.5-8.0)
[2023-07-13 21:57] LABS: URINE AMPHETAMINES Negative (1000ng/ml); URINE BARBITURATES Negative (200ng/ml); URINE BENZODIAZEPINES Negative (200ng/ml); URINE CANNABINOIDS (THC) Negative (50ng/ml); URINE COCAINE Negative (300ng/ml); URINE METHADONE Negative (300ng/ml); URINE OPIATES Negative (300ng/ml); URINE PHENCYCLIDINE Negative (25ng/ml)
[2023-07-13] MEDS ORDERED: Albuterol Sulf/Ipratropium 3 ML VIAL NEB SCH (22:10)
[2023-07-13 22:13] LABS: BACTERIA TRACE; FINE GRANULAR CAST 0-2; MUCOUS 1+
[2023-07-13] MEDS ORDERED: LEVOFLOXACIN 150 ML IV SCH (23:00)
[2023-07-14 05:40] VITALS: BP 121/70
[2023-07-14] MEDS ORDERED: OMEPRAZOLE 20 MG CAP PO SCH (06:00)
[2023-07-14 07:04] LABS: BASO % 0.1 % (0.0-1.0); HEMATOCRIT 39.8 % (37.0-47.0); LYMPH # 1.4 10*3/uL (1.3-4.4); LYMPH % 15.9 % (27.0-41.0); MEAN CELL VOLUME 86.7 fl (81.0-99.0); MEAN CORPUSCULAR HGB 26.6 pg (27.0-31.0); MEAN CORPUSCULAR HGB CONC 30.7 g/dl (33.0-37.0); MEAN PLATELET VOLUME 9.5 fl (9.6-12.3); MONO # 0.7 10*3/uL (0.1-1.0); MONO % 7.4 % (3.0-9.0); NEUT # 6.7 10*3/uL (2.3-7.9); NEUT % 76.1 % (47.0-73.0); NUCLEATED RED BLOOD CELL 0.5 % (0.0-0.0); PLATELET COUNT AUTOMATED 259 10*3/uL (130-400); RED BLOOD COUNT 4.59 10*6/uL (4.10-5.10); RED CELL DISTRI WIDTH 16.2 % (0-14.5); WHITE BLOOD COUNT 8.7 10*3/uL (4.8-10.8)
[2023-07-14 07:31] LABS: ALKALINE PHOSPHATASE 58 U/L (46-116); BUN 14 mg/dl (9-23); CHLORIDE 97 mmol/L (98-107); POTASSIUM 3.1 mmol/L (3.4-5.1); SGPT/ALT 11 U/L (5-49); TOTAL PROTEIN 7.2 gm/dL (6.0-8.0)
[2023-07-14 07:46] VITALS: BP 109/61
[2023-07-14] MEDS ORDERED: Pioglitazone Hydrochloride 15 MG TAB PO SCH (10:00)
[2023-07-14] MEDS ORDERED: ASPIRIN ENTERIC COATED 81 MG TAB PO SCH (10:00)
[2023-07-14] MEDS ORDERED: LORazepam 0.5 MG TAB PO SCH (10:00)
[2023-07-14] MEDS ORDERED: ATORVASTATIN CALCIUM 10 MG TAB PO SCH (10:00)
[2023-07-14 14:15] VITALS: BP 131/71
[2023-07-14] MEDS ORDERED: ALPRAZolam 0.5 MG TAB PO ONE (14:35)
[2023-07-14] MEDS ORDERED: DEXTROSE 10 % IN WATER 250 ML DEHP.FR.BG IV PRN (14:40)
[2023-07-14] MEDS ORDERED: Nicotine 21 MG PATCH T SCH (15:35)
[2023-07-14 16:00] VITALS: BP 136/73
[2023-07-14] MEDS ORDERED: TOBRAMYCIN 2.5 ML BOT OPH SCH (16:00)
[2023-07-14] MEDS ORDERED: INSULIN REGULAR, HUMAN 1 UNIT/0.01 ML SC SCH (16:30)
[2023-07-14 20:00] VITALS: BP 149/55
[2023-07-14] MEDS ORDERED: NYSTATIN 15 GM BOT T SCH (22:00)
[2023-07-14] MEDS ORDERED: Insulin Glargine, Recombinan 1 UNIT/0.01 ML SC SCH (22:00)
[2023-07-14] MEDS ORDERED: hydrOXYzine hydrochloride 10 MG TAB PO ONE (22:30)
[2023-07-15] VITALS: BP 139/78
[2023-07-15 06:04] LABS: ALKALINE PHOSPHATASE 54 U/L (46-116); BUN 16 mg/dl (9-23); CHLORIDE 97 mmol/L (98-107); POTASSIUM 2.9 mmol/L (3.4-5.1); SGPT/ALT 16 U/L (5-49); TOTAL PROTEIN 6.6 gm/dL (6.0-8.0)
[2023-07-15 06:14] LABS: EOS % 0.2 % (1.0-4.0); HEMATOCRIT 36.4 % (37.0-47.0); LYMPH # 0.9 10*3/uL (1.3-4.4); MEAN CELL VOLUME 85.6 fl (81.0-99.0); MEAN CORPUSCULAR HGB 26.6 pg (27.0-31.0); MEAN PLATELET VOLUME 10.6 fl (9.6-12.3); MONO # 0.5 10*3/uL (0.1-1.0); MONO % 8.3 % (3.0-9.0); NEUT # 4.1 10*3/uL (2.3-7.9); NUCLEATED RED BLOOD CELL 0.4 % (0.0-0.0); PLATELET COUNT AUTOMATED 251 10*3/uL (130-400); RED BLOOD COUNT 4.25 10*6/uL (4.10-5.10); RED CELL DISTRI WIDTH 16.1 % (0-14.5); WHITE BLOOD COUNT 5.5 10*3/uL (4.8-10.8)
[2023-07-15] MEDS ORDERED: POTASSIUM CHLORIDE 20 MEQ TAB PO ONE ×2 (07:30→11:15)
[2023-07-15 08:00] VITALS: BP 146/76
[2023-07-15] MEDS ORDERED: hydrOXYzine pamoate 25 MG CAP PO PRN (08:55)
[2023-07-15] MEDS ORDERED: Enoxaparin Sodium 40 MG/0.4 ML SYR SC SCH (10:00)
[2023-07-15 11:45] LABS: ABG BASE EXCESS 0.2 mmol/L (-2.0-2.0); ARTERIAL BLOOD GAS PH 7.412 (7.35-7.45)
[2023-07-15 12:00] VITALS: BP 146/76
[2023-07-15 12:33] LABS: ALKALINE PHOSPHATASE 59 U/L (46-116); BUN 15 mg/dl (9-23); CHLORIDE 96 mmol/L (98-107); POTASSIUM 3.3 mmol/L (3.4-5.1); SGPT/ALT 17 U/L (5-49)
[2023-07-15] MEDS ORDERED: MAGNESIUM SULFATE 100 ML IV ONE (13:05)
[2023-07-15] MEDS ORDERED: Haloperidol Lactate 5 MG/ML AMP IV ONE (14:25)
[2023-07-15 16:00] VITALS: BP 133/63
[2023-07-15] MEDS ORDERED: ALPRAZolam 0.25 MG TAB PO PRN (16:55)
[2023-07-15 20:00] VITALS: BP 150/60
[2023-07-15] MEDS ORDERED: NYSTATIN 15 GM BOT T SCH (22:00)
[2023-07-16] VITALS: BP 122/37
[2023-07-16] MEDS ORDERED: Meropenem 500 MG in SODIUM CHLORIDE 0.9% 50 ML IV SCH
[2023-07-16 06:23] LABS: ALKALINE PHOSPHATASE 60 U/L (46-116); BUN 12 mg/dl (9-23); CHLORIDE 96 mmol/L (98-107); POTASSIUM 3.8 mmol/L (3.4-5.1); SGPT/ALT 22 U/L (5-49); TOTAL PROTEIN 6.8 gm/dL (6.0-8.0)
[2023-07-16 06:30] LABS: BASO % 0.2 % (0.0-1.0); HEMATOCRIT 38.2 % (37.0-47.0); LYMPH % 19.1 % (27.0-41.0); MEAN CELL VOLUME 85.7 fl (81.0-99.0); MEAN CORPUSCULAR HGB 26.2 pg (27.0-31.0); MEAN CORPUSCULAR HGB CONC 30.6 g/dl (33.0-37.0); MEAN PLATELET VOLUME 10.4 fl (9.6-12.3); MONO # 0.5 10*3/uL (0.1-1.0); MONO % 9.1 % (3.0-9.0); NEUT # 3.7 10*3/uL (2.3-7.9); NEUT % 70.8 % (47.0-73.0); NUCLEATED RED BLOOD CELL 0.4 % (0.0-0.0); PLATELET COUNT AUTOMATED 295 10*3/uL (130-400); RED BLOOD COUNT 4.46 10*6/uL (4.10-5.10); RED CELL DISTRI WIDTH 16.4 % (0-14.5); WHITE BLOOD COUNT 5.2 10*3/uL (4.8-10.8)
[2023-07-16 08:00] VITALS: BP 157/75
[2023-07-16 12:00] VITALS: BP 152/74
[2023-07-16 16:00] VITALS: BP 152/84
[2023-07-16 20:00] VITALS: BP 137/78
[2023-07-17 08:00] VITALS: BP 146/80
[2023-07-17] MEDS ORDERED: Doxycycline Hyclate 100 MG CAP PO SCH (10:00)
[2023-07-17 12:00] VITALS: BP 157/82
[2023-07-17 12:54] LABS: URINE CHLORIDE, RANDOM 52 mmol/L
[2023-07-17 16:00] VITALS: BP 136/76
[2023-07-17 20:00] VITALS: BP 136/72
[2023-07-18] VITALS: BP 146/81
[2023-07-18 08:00] VITALS: BP 156/86
[2023-07-18] MEDS ORDERED: SODIUM CHLORIDE 0.9% 1,000 ML IV SCH (12:00)
[2023-07-18 16:00] VITALS: BP 153/71
[2023-07-18] MEDS ORDERED: ASPIRIN ENTERIC COATED 81 MG TAB PO ONE (19:50)
[2023-07-18 20:00] VITALS: BP 154/74
[2023-07-18 20:31] LABS: BASO % 0.4 % (0.0-1.0); EOS % 0.4 % (1.0-4.0); LYMPH # 0.9 10*3/uL (1.3-4.4); LYMPH % 12.7 % (27.0-41.0); MEAN CELL VOLUME 87.2 fl (81.0-99.0); MEAN CORPUSCULAR HGB 26.4 pg (27.0-31.0); MEAN CORPUSCULAR HGB CONC 30.2 g/dl (33.0-37.0); MEAN PLATELET VOLUME 9.5 fl (9.6-12.3); MONO # 0.5 10*3/uL (0.1-1.0); MONO % 7.2 % (3.0-9.0); NEUT # 5.3 10*3/uL (2.3-7.9); PLATELET COUNT AUTOMATED 362 10*3/uL (130-400); RED CELL DISTRI WIDTH 16.9 % (0-14.5); WHITE BLOOD COUNT 6.8 10*3/uL (4.8-10.8)
[2023-07-18 20:48] LABS: ALKALINE PHOSPHATASE 71 U/L (46-116); BUN 22 mg/dl (9-23); CHLORIDE 96 mmol/L (98-107); POTASSIUM 3.7 mmol/L (3.4-5.1); SGPT/ALT 18 U/L (5-49)
[2023-07-19] VITALS: BP 151/89
[2023-07-19 05:32] LABS: ALKALINE PHOSPHATASE 66 U/L (46-116); BUN 20 mg/dl (9-23); CHLORIDE 98 mmol/L (98-107); POTASSIUM 4.2 mmol/L (3.4-5.1); SGPT/ALT 16 U/L (5-49); TOTAL PROTEIN 6.7 gm/dL (6.0-8.0)
[2023-07-19 06:29] LABS: BASO % 0.4 % (0.0-1.0); EOS % 0.6 % (1.0-4.0); HEMATOCRIT 40.9 % (37.0-47.0); LYMPH # 1.2 10*3/uL (1.3-4.4); LYMPH % 17.5 % (27.0-41.0); MEAN CELL VOLUME 88.9 fl (81.0-99.0); MEAN CORPUSCULAR HGB CONC 30.3 g/dl (33.0-37.0); MEAN PLATELET VOLUME 10.2 fl (9.6-12.3); MONO # 0.6 10*3/uL (0.1-1.0); MONO % 8.4 % (3.0-9.0); NEUT # 4.9 10*3/uL (2.3-7.9); NEUT % 70.9 % (47.0-73.0); NUCLEATED RED BLOOD CELL 0.3 % (0.0-0.0); PLATELET COUNT AUTOMATED 398 10*3/uL (130-400); RED CELL DISTRI WIDTH 17.1 % (0-14.5); WHITE BLOOD COUNT 6.9 10*3/uL (4.8-10.8)
[2023-07-19 08:00] VITALS: BP 158/63
[2023-07-19] MEDS ORDERED: Ondansetron Hydrochloride 4 MG/2 ML VIAL IV PRN (10:00)
[2023-07-19 12:00] VITALS: BP 149/67
[2023-07-19] MEDS ORDERED: BARIUM SULFATE 2% 450 ML BOT PO SCH (13:05)
[2023-07-19 16:00] VITALS: BP 157/73
[2023-07-19] MEDS ORDERED: Benzocaine/Menthol 1 LOZ LOZENGE PO PRN (16:25)
[2023-07-19] MEDS ORDERED: PHENOL 177 ML THROAT SPRAY T ONE (16:30)
[2023-07-19 20:00] VITALS: BP 111/51
[2023-07-19] MEDS ORDERED: ERYTHROMYCIN 250 MG TAB PO SCH (22:00)
[2023-07-20] VITALS: BP 144/58
[2023-07-20] MEDS ORDERED: Metoclopramide Hydrochloride 10 MG/2 ML AMP IV SCH
[2023-07-20] MEDS ORDERED: ERYTHROMYCIN STEARATE 250 MG TAB PO SCH
[2023-07-20] MEDS ORDERED: Pantoprazole Sodium 40 MG VIAL IV SCH (06:00)
[2023-07-20 06:01] LABS: BASO % 0.5 % (0.0-1.0); EOS # 0.1 10*3/uL (0.0-0.4); EOS % 1.2 % (1.0-4.0); HEMATOCRIT 39.8 % (37.0-47.0); LYMPH # 1.4 10*3/uL (1.3-4.4); LYMPH % 17.4 % (27.0-41.0); MEAN CELL VOLUME 88.2 fl (81.0-99.0); MEAN CORPUSCULAR HGB 26.2 pg (27.0-31.0); MEAN CORPUSCULAR HGB CONC 29.6 g/dl (33.0-37.0); MEAN PLATELET VOLUME 9.8 fl (9.6-12.3); MONO # 0.8 10*3/uL (0.1-1.0); MONO % 9.6 % (3.0-9.0); NEUT # 5.6 10*3/uL (2.3-7.9); NEUT % 69.6 % (47.0-73.0); NUCLEATED RED BLOOD CELL 0.2 % (0.0-0.0); PLATELET COUNT AUTOMATED 452 10*3/uL (130-400); RED BLOOD COUNT 4.51 10*6/uL (4.10-5.10); RED CELL DISTRI WIDTH 16.9 % (0-14.5)
[2023-07-20 06:55] LABS: ALKALINE PHOSPHATASE 66 U/L (46-116); BUN 28 mg/dl (9-23); CHLORIDE 94 mmol/L (98-107); SGPT/ALT 14 U/L (5-49); TOTAL PROTEIN 6.4 gm/dL (6.0-8.0)
[2023-07-20] MEDS ORDERED: SODIUM CHLORIDE 0.9% 1,000 ML IV SCH (07:15)
[2023-07-20 12:00] VITALS: BP 138/60
[2023-07-20] MEDS ORDERED: POTASSIUM CHLORIDE 20 MEQ TAB PO ONE (12:30)
[2023-07-20] MEDS ORDERED: POTASSIUM CHLORIDE 20 MEQ TAB PO SCH (15:00)
[2023-07-20] MEDS ORDERED: MULTIVITAMIN TRACE ELEMENT IV SCH (18:00)
[2023-07-20] MEDS ORDERED: [UNRECOGNIZED DRUG - OTHER] IV SCH (18:00)
[2023-07-20] MEDS ORDERED: Safflower/Soybean Oil (LIPOSYN 500 ML IV SCH (18:00)
[2023-07-20] MEDS ORDERED: ERYTHROMYCIN 250 MG TAB PO SCH (19:47)
[2023-07-20 20:00] VITALS: BP 145/66
[2023-07-20] MEDS ORDERED: DOXYCYCLINE MO100 MG PO (22:37)
[2023-07-21] VITALS: BP 135/68
[2023-07-21 08:00] VITALS: BP 143/58
[2023-07-21 08:19] LABS: ALKALINE PHOSPHATASE 67 U/L (46-116); CHLORIDE 97 mmol/L (98-107); POTASSIUM 3.5 mmol/L (3.4-5.1); SGPT/ALT 10 U/L (5-49); TOTAL PROTEIN 6.2 gm/dL (6.0-8.0)
[2023-07-21 08:33] LABS: BUN 14 mg/dl (9-23)
[2023-07-21] MEDS ORDERED: POTASSIUM CHLORIDE 20 MEQ TAB PO SCH (10:00)
[2023-07-21 12:00] VITALS: BP 151/65
[2023-07-21 16:00] VITALS: BP 147/59
[2023-07-21 20:00] VITALS: BP 145/61
[2023-07-22] VITALS: BP 142/60
[2023-07-22 12:00] VITALS: BP 149/62
[2023-07-22] MEDS ORDERED: Haloperidol Lactate 5 MG/ML AMP IV ONE (13:50)
[2023-07-22 16:00] VITALS: BP 134/65
[2023-07-22 20:00] VITALS: BP 133/69
[2023-07-22] MEDS ORDERED: TEMAZEPAM 15 MG CAP PO ONE (23:00)
[2023-07-23] VITALS: BP 134/73
[2023-07-23] MEDS ORDERED: LORazepam 0.5 MG TAB PO ONE (00:55)
[2023-07-23] MEDS ORDERED: Melatonin 5 MG TABLET PO ONE (00:55)
[2023-07-23 06:23] LABS: HEMATOCRIT 37.2 % (37.0-47.0); MEAN CELL VOLUME 89.9 fl (81.0-99.0); MEAN CORPUSCULAR HGB 26.6 pg (27.0-31.0); MEAN CORPUSCULAR HGB CONC 29.6 g/dl (33.0-37.0); MEAN PLATELET VOLUME 9.1 fl (9.6-12.3); NUCLEATED RED BLOOD CELL 0.3 % (0.0-0.0); PLATELET COUNT AUTOMATED 443 10*3/uL (130-400); RED BLOOD COUNT 4.14 10*6/uL (4.10-5.10); RED CELL DISTRI WIDTH 16.9 % (0-14.5); WHITE BLOOD COUNT 7.2 10*3/uL (4.8-10.8)
[2023-07-23 06:39] LABS: MANUAL DIFF REFLEX YES
[2023-07-23 06:55] LABS: ALKALINE PHOSPHATASE 71 U/L (46-116); BUN 6 mg/dl (9-23); CHLORIDE 105 mmol/L (98-107); POTASSIUM 3.6 mmol/L (3.4-5.1); SGPT/ALT 14 U/L (5-49); TOTAL PROTEIN 5.6 gm/dL (6.0-8.0)
[2023-07-23 07:43] LABS: ATYPICAL LYMPHS 1 % (0-0); PLATELET SUFFICIENCY HIGH (NORMAL); TOTAL CELLS COUNTED 100 #CELLS
[2023-07-23 07:44] LABS: MICROCYTOSIS SLIGHT
[2023-07-23 08:00] VITALS: BP 144/54
[2023-07-23 12:00] VITALS: BP 137/61
[2023-07-23 16:00] VITALS: BP 130/62
[2023-07-23 20:00] VITALS: BP 150/67
[2023-07-24] VITALS: BP 148/68
[2023-07-24 08:00] VITALS: BP 98/57
== END 2023-07-24 10:38 | DRG 720 ==
LOC: ED 16:50 → EDHOLD 21:06 → 4E 21:06 → EDHOLD 22:10 → 4E 07-14 13:20
PROVIDERS: Internal Medicine; Internal Medicine Critical Care Medicine; Internal Medicine Nephrology; Student in an Organized Health Care Education/Training Program; ADMIT Internal Medicine; ATTEND Internal Medicine
PROC: 5A0935A Assistance with Respiratory Ventilation, Less than 24 Consecutive Hours, High Flow/Velocity Cannula (ICD-10-PCS; principal; 2023-07-13)
PROC: 5A0935A Assistance with Respiratory Ventilation, Less than 24 Consecutive Hours, High Flow/Velocity Cannula (ICD-10-PCS; 2023-07-14)
PROC: 5A0935A Assistance with Respiratory Ventilation, Less than 24 Consecutive Hours, High Flow/Velocity Cannula (ICD-10-PCS; 2023-07-15)
PROC: 5A0935A Assistance with Respiratory Ventilation, Less than 24 Consecutive Hours, High Flow/Velocity Cannula (ICD-10-PCS; 2023-07-16)
PROC: 0D9670Z Drainage of Stomach with Drainage Device, Via Natural or Artificial Opening (ICD-10-PCS; 2023-07-19)
PROC: 5A0935A Assistance with Respiratory Ventilation, Less than 24 Consecutive Hours, High Flow/Velocity Cannula (ICD-10-PCS; 2023-07-20)
PROC: 5A0935A Assistance with Respiratory Ventilation, Less than 24 Consecutive Hours, High Flow/Velocity Cannula (ICD-10-PCS; 2023-07-21)
PROC: 5A0935A Assistance with Respiratory Ventilation, Less than 24 Consecutive Hours, High Flow/Velocity Cannula (ICD-10-PCS; 2023-07-22)
DX: A41.9 Sepsis, unspecified organism (principal); J96.21 Acute and chronic respiratory failure with hypoxia; E44.1 Mild protein-calorie malnutrition; G93.41 Metabolic encephalopathy; J12.9 Viral pneumonia, unspecified; J44.1 Chronic obstructive pulmonary disease with (acute) exacerbation; J44.0 Chronic obstructive pulmonary disease with (acute) lower respiratory infection; N17.9 Acute kidney failure, unspecified; E87.1 Hypo-osmolality and hyponatremia; K21.9 Gastro-esophageal reflux disease without esophagitis; Z20.822 Contact with and (suspected) exposure to COVID-19; I50.9 Heart failure, unspecified; F41.9 Anxiety disorder, unspecified; E66.01 Morbid (severe) obesity due to excess calories; R41.0 Disorientation, unspecified; E87.6 Hypokalemia; E11.9 Type 2 diabetes mellitus without complications; Z68.41 Body mass index [BMI] 40.0-44.9, adult; K31.84 Gastroparesis; M54.9 Dorsalgia, unspecified; E83.42 Hypomagnesemia; Z85.53 Personal history of malignant neoplasm of renal pelvis; Z88.0 Allergy status to penicillin; Z88.1 Allergy status to other antibiotic agents; Z87.891 Personal history of nicotine dependence; Z79.82 Long term (current) use of aspirin; Z79.899 Other long term (current) drug therapy

== ENCOUNTER 2023-09-17 22:29 | Inpatient (IN) | payer OTHER ==
[~2023-09-17] VITALS: Ht 162.5 cm; Wt 95.7 kg
[~2023-09-17 22:29] MED LIST changes: +DOXYCYCLINE MO100 MG PO
[2023-09-17 22:38] VITALS: BP 157/85
[2023-09-17] MEDS ORDERED: Albuterol Sulf/Ipratropium 3 ML VIAL NEB ONE (22:40)
[2023-09-17 22:57] LABS: ABG BASE EXCESS 0.8 mmol/L (-2.0-2.0); ARTERIAL BLOOD GAS PH 7.619 (7.35-7.45)
[2023-09-17] MEDS ORDERED: Midazolam Hydrochloride 2 MG/2 ML VIAL IV ONE (23:00)
[2023-09-17 23:03] LABS: HEMATOCRIT 38.4 % (37.0-47.0); MEAN CELL VOLUME 88.7 fl (81.0-99.0); MEAN CORPUSCULAR HGB 27.9 pg (27.0-31.0); MEAN CORPUSCULAR HGB CONC 31.5 g/dl (33.0-37.0); NUCLEATED RED BLOOD CELL 0.1 10*3/uL (0.0-0.0); NUCLEATED RED BLOOD CELL 0.4 % (0.0-0.0); PLATELET COUNT AUTOMATED 629 10*3/uL (130-400); RED BLOOD COUNT 4.33 10*6/uL (4.10-5.10); RED CELL DISTRI WIDTH 18.7 % (0-14.5)
[2023-09-17 23:06] LABS: MANUAL DIFF REFLEX YES
[2023-09-17 23:15] LABS: ACT PARTIAL THROMBO TIME 32.9 SECONDS (20.0-32.1)
[2023-09-17] MEDS ORDERED: SODIUM CHLORIDE 0.9% 1,000 ML IV SCH (23:25)
[2023-09-17 23:26] LABS: PLATELET SUFFICIENCY HIGH (NORMAL); TOTAL CELLS COUNTED 100 #CELLS
[2023-09-17] MEDS ORDERED: Ondansetron Hydrochloride 4 MG/2 ML VIAL IV ONE (23:35)
[2023-09-17 23:40] LABS: ALKALINE PHOSPHATASE 106 U/L (46-116); BUN 5 mg/dl (9-23); CHLORIDE 91 mmol/L (98-107); LIPASE 36 U/L (12-53); SGPT/ALT 14 U/L (5-49); TOTAL PROTEIN 6.3 gm/dL (6.0-8.0)
[2023-09-17 23:41] LABS: POTASSIUM 1.9 mmol/L (3.4-5.1)
[2023-09-17] MEDS ORDERED: MAGNESIUM SULFATE 100 ML IV ONE (23:45)
[2023-09-17] MEDS ORDERED: POTASSIUM CHLORIDE 20 MEQ TAB PO ONE (23:45)
[2023-09-18] VITALS (9 sets, daily range): BP systolic 135–163; BP diastolic 63–94
[2023-09-18 00:16] LABS: BILIRUBIN Negative (Negative); BLOOD 1+ (Negative); CLARITY Turbid (Clear); COLOR Yellow (Yellow); GLUCOSE Negative (Negative); KETONE Trace (Negative); LEUKO ESTERASE 3+ (Negative); NITRITE Negative (Negative)
[2023-09-18 00:32] LABS: BACTERIA 4+; EPITHELIAL CELLS 21-30; WBC 41-50 wbc/hpf (0-5)
[2023-09-18 00:33] LABS: RBC 16-20 rbc/hpf (0-2)
[2023-09-18] MEDS ORDERED: Vancomycin Hydrochloride 250 ML IV ONE (00:55)
[2023-09-18] MEDS ORDERED: Cefepime Hydrochloride 1 GM in SODIUM CHLORIDE 0.9% 50 ML IV SCH ×2 (00:57→03:50)
[2023-09-18] MEDS ORDERED: DIAZEPAM 10 MG/2 ML SYR IV ONE ×2 (01:25→01:55)
[2023-09-18 02:40] LABS: URINE AMPHETAMINES Negative (1000ng/ml); URINE BARBITURATES Negative (200ng/ml); URINE BENZODIAZEPINES Positive (200ng/ml); URINE CANNABINOIDS (THC) Negative (50ng/ml); URINE COCAINE Negative (300ng/ml); URINE METHADONE Negative (300ng/ml); URINE OPIATES Negative (300ng/ml); URINE PHENCYCLIDINE Negative (25ng/ml)
[2023-09-18] MEDS ORDERED: Acetaminophen/Hydrocodone 5 MG/325 MG TABLET PO PRN (03:45)
[2023-09-18] MEDS ORDERED: TEMAZEPAM 15 MG CAP PO PRN (03:45)
[2023-09-18] MEDS ORDERED: ACETAMINOPHEN 325 MG TAB PO PRN (03:45)
[2023-09-18] MEDS ORDERED: BISACODYL 5 MG TAB PO PRN (03:45)
[2023-09-18] MEDS ORDERED: MORPHINE Sulfate 2 MG/ML SYR IV PRN (03:45)
[2023-09-18] MEDS ORDERED: Ondansetron Hydrochloride 4 MG/2 ML VIAL IV PRN (03:45)
[2023-09-18] MEDS ORDERED: ACETAMINOPHEN 650 MG SUPP R PRN (03:45)
[2023-09-18] MEDS ORDERED: DEXTROSE 10 % IN WATER 250 ML IV PRN (03:50)
[2023-09-18] MEDS ORDERED: CALCIUM GLUC IN NACL, ISO-OSM 100 ML IV SCH ×2 (04:00→07:00)
[2023-09-18] MEDS ORDERED: DIAZEPAM 5 MG TAB PO PRN (04:00)
[2023-09-18] MEDS ORDERED: Albuterol Sulf/Ipratropium 3 ML VIAL NEB SCH (04:10)
[2023-09-18] MEDS ORDERED: SODIUM CHLORIDE 0.9% 1,000 ML IV SCH (04:20)
[2023-09-18] MEDS ORDERED: DIAZEPAM 10 MG/2 ML SYR IV PRN (04:25)
[2023-09-18] MEDS ORDERED: SODIUM CHLORIDE 0.9% 200 ML IV ONE (05:50)
[2023-09-18] MEDS ORDERED: CALCIUM GLUCONATE 1 GM/10 ML VIAL ONE (05:50)
[2023-09-18] MEDS ORDERED: Pantoprazole Sodium 40 MG TAB PO SCH (06:00)
[2023-09-18 06:40] LABS: EOS % 0.2 % (1.0-4.0); LYMPH # 1.5 10*3/uL (1.3-4.4); LYMPH % 13.8 % (27.0-41.0); MEAN CELL VOLUME 89.9 fl (81.0-99.0); MEAN CORPUSCULAR HGB 28.4 pg (27.0-31.0); MEAN CORPUSCULAR HGB CONC 31.6 g/dl (33.0-37.0); MEAN PLATELET VOLUME 9.7 fl (9.6-12.3); MONO # 0.5 10*3/uL (0.1-1.0); MONO % 4.2 % (3.0-9.0); NEUT # 9.1 10*3/uL (2.3-7.9); NUCLEATED RED BLOOD CELL 0.1 10*3/uL (0.0-0.0); NUCLEATED RED BLOOD CELL 0.7 % (0.0-0.0); RED BLOOD COUNT 2.78 10*6/uL (4.10-5.10); RED CELL DISTRI WIDTH 18.6 % (0-14.5); WHITE BLOOD COUNT 11.2 10*3/uL (4.8-10.8)
[2023-09-18 06:43] LABS: PLATELET COUNT AUTOMATED 383 10*3/uL (130-400)
[2023-09-18 06:47] LABS: ALKALINE PHOSPHATASE 63 U/L (46-116); CHLORIDE 110 mmol/L (98-107); CHOLESTEROL 72 mg/dL (<200); FREE T4 1.06 ng/dl (0.89-1.76); LDL CHOLESTEROL 29 mg/dL (9-159); SGPT/ALT 8 U/L (5-49); TOTAL PROTEIN 3.5 gm/dL (6.0-8.0); TRIGLYCERIDES 85 mg/dl (<150)
[2023-09-18 06:52] LABS: BUN < 5 mg/dl (9-23)
[2023-09-18 06:55] LABS: POTASSIUM 1.6 mmol/L (3.4-5.1)
[2023-09-18] MEDS ORDERED: MAGNESIUM SULFATE 50 ML IV SCH ×2 (07:00→18:55)
[2023-09-18] MEDS ORDERED: POTASSIUM CHLORIDE IN WATER 100 ML IV SCH ×3 (07:00→19:00)
[2023-09-18] MEDS ORDERED: POTASSIUM CHLORIDE 100 ML IV SCH (07:00)
[2023-09-18] MEDS ORDERED: INSULIN LISPRO 1 UNIT/0.01 ML SQ SCH (07:30)
[2023-09-18] MEDS ORDERED: VANCOMYCIN/WATER FOR INJ (PEG) 250 ML IV SCH (08:00)
[2023-09-18] MEDS ORDERED: PERFLUTREN PROTEIN-A MICROSPHR 3 ML VIAL IV ONE (08:22)
[2023-09-18] MEDS ORDERED: POTASSIUM CHLORIDE 20 MEQ TAB PO ONE ×2 (09:00→18:50)
[2023-09-18] MEDS ORDERED: POTASSIUM PHOSPHATE 30 MMOL in SODIUM CHLORIDE 0.9% 500 ML IV ONE (09:30)
[2023-09-18] MEDS ORDERED: SODIUM CHLORIDE 0.9% 50 ML BAG IV ONE (09:50)
[2023-09-18] MEDS ORDERED: Cefepime Hydrochloride 1 GM VIAL IV ONE (09:50)
[2023-09-18] MEDS ORDERED: ASPIRIN ENTERIC COATED 81 MG TAB PO SCH (10:00)
[2023-09-18] MEDS ORDERED: Metoprolol Tartrate 25 MG TAB PO SCH (10:00)
[2023-09-18] MEDS ORDERED: Enoxaparin Sodium 40 MG/0.4 ML SYR SC SCH (10:00)
[2023-09-18] MEDS ORDERED: Nicotine 21 MG PATCH T SCH (10:00)
[2023-09-18] MEDS ORDERED: Cefepime Hydrochloride 2 GM in SODIUM CHLORIDE 0.9% 50 ML IV SCH (14:00)
[2023-09-18 18:25] LABS: ALKALINE PHOSPHATASE 86 U/L (46-116); CHLORIDE 98 mmol/L (98-107); SGPT/ALT 13 U/L (5-49); TOTAL PROTEIN 5.2 gm/dL (6.0-8.0)
[2023-09-18 18:26] LABS: BUN < 5 mg/dl (9-23)
[2023-09-18 18:28] LABS: POTASSIUM 2.1 mmol/L (3.4-5.1)
[2023-09-18] MEDS ORDERED: CALCIUM GLUC IN NACL, ISO-OSM 100 ML IV ONE (18:50)
[2023-09-18] MEDS ORDERED: ATORVASTATIN CALCIUM 80 MG TAB PO SCH (22:00)
[2023-09-19] VITALS: BP 118/66
[2023-09-19 04:00] VITALS: BP 136/73
[2023-09-19 05:25] LABS: ALKALINE PHOSPHATASE 82 U/L (46-116); CHLORIDE 102 mmol/L (98-107); SGPT/ALT 13 U/L (5-49); TOTAL PROTEIN 4.8 gm/dL (6.0-8.0)
[2023-09-19 05:26] LABS: BUN < 5 mg/dl (9-23); POTASSIUM 2.4 mmol/L (3.4-5.1)
[2023-09-19 06:24] LABS: BASO % 0.1 % (0.0-1.0); EOS # 0.1 10*3/uL (0.0-0.4); EOS % 0.7 % (1.0-4.0); HEMATOCRIT 28.1 % (37.0-47.0); LYMPH # 1.6 10*3/uL (1.3-4.4); LYMPH % 18.5 % (27.0-41.0); MEAN CELL VOLUME 89.5 fl (81.0-99.0); MEAN CORPUSCULAR HGB 28.7 pg (27.0-31.0); MEAN PLATELET VOLUME 9.5 fl (9.6-12.3); MONO # 0.4 10*3/uL (0.1-1.0); NEUT # 6.7 10*3/uL (2.3-7.9); NEUT % 75.2 % (47.0-73.0); NUCLEATED RED BLOOD CELL 0.3 % (0.0-0.0); PLATELET COUNT AUTOMATED 396 10*3/uL (130-400); RED BLOOD COUNT 3.14 10*6/uL (4.10-5.10); RED CELL DISTRI WIDTH 18.7 % (0-14.5); WHITE BLOOD COUNT 8.9 10*3/uL (4.8-10.8)
[2023-09-19 06:47] LABS: VITAMIN D, 25-HYDROXY 7.9 ng/mL (30-100)
[2023-09-19 08:00] VITALS: BP 134/79
[2023-09-19] MEDS ORDERED: POTASSIUM CHLORIDE IN WATER 100 ML IV SCH (09:00)
[2023-09-19] MEDS ORDERED: [UNRECOGNIZED DRUG - OTHER] IV ONE (09:00)
[2023-09-19] MEDS ORDERED: SODIUM CHLORIDE IV ONE (09:00)
[2023-09-19] MEDS ORDERED: CALCIUM GLUCONATE IV ONE (09:00)
[2023-09-19] MEDS ORDERED: POTASSIUM CHLORIDE 20 MEQ TAB PO SCH ×2 (10:00→18:30)
[2023-09-19] MEDS ORDERED: ERGOCALCIFEROL 50,000 IU CAP (1.25 MG) PO SCH (10:00)
[2023-09-19] MEDS ORDERED: SPIRONOLACTONE 25 MG TAB PO SCH ×2 (10:00→18:34)
[2023-09-19 12:00] VITALS: BP 133/81
[2023-09-19 16:00] VITALS: BP 141/72
[2023-09-19 18:10] LABS: ALKALINE PHOSPHATASE 89 U/L (46-116); CHLORIDE 101 mmol/L (98-107); SGPT/ALT 16 U/L (5-49); TOTAL PROTEIN 5.2 gm/dL (6.0-8.0)
[2023-09-19 18:15] LABS: BUN < 5 mg/dl (9-23)
[2023-09-19] MEDS ORDERED: POTASSIUM CHLORIDE 100 ML IV SCH (19:00)
[2023-09-19 20:00] VITALS: BP 142/80
[2023-09-20] VITALS: BP 141/48
[2023-09-20] MEDS ORDERED: Ondansetron Hydrochloride 4 MG/2 ML VIAL IV PRN (04:50)
[2023-09-20 06:16] LABS: BASO % 0.1 % (0.0-1.0); EOS # 0.1 10*3/uL (0.0-0.4); EOS % 0.5 % (1.0-4.0); HEMATOCRIT 32.8 % (37.0-47.0); LYMPH # 1.1 10*3/uL (1.3-4.4); LYMPH % 11.1 % (27.0-41.0); MEAN CELL VOLUME 88.9 fl (81.0-99.0); MEAN CORPUSCULAR HGB 28.2 pg (27.0-31.0); MEAN CORPUSCULAR HGB CONC 31.7 g/dl (33.0-37.0); MEAN PLATELET VOLUME 9.4 fl (9.6-12.3); MONO # 0.4 10*3/uL (0.1-1.0); MONO % 3.7 % (3.0-9.0); NEUT # 8.1 10*3/uL (2.3-7.9); NEUT % 84.1 % (47.0-73.0); NUCLEATED RED BLOOD CELL 0.1 10*3/uL (0.0-0.0); NUCLEATED RED BLOOD CELL 0.5 % (0.0-0.0); PLATELET COUNT AUTOMATED 470 10*3/uL (130-400); RED BLOOD COUNT 3.69 10*6/uL (4.10-5.10); RED CELL DISTRI WIDTH 19.2 % (0-14.5); WHITE BLOOD COUNT 9.7 10*3/uL (4.8-10.8)
[2023-09-20 06:30] LABS: ALKALINE PHOSPHATASE 104 U/L (46-116); CHLORIDE 100 mmol/L (98-107); POTASSIUM 3.9 mmol/L (3.4-5.1); SGPT/ALT 16 U/L (5-49); TOTAL PROTEIN 5.5 gm/dL (6.0-8.0)
[2023-09-20 06:46] LABS: BUN < 5 mg/dl (9-23)
[2023-09-20] MEDS ORDERED: IOHEXOL 300 MG/ML 100 ML VIAL IV ONE (07:35)
[2023-09-20 08:00] VITALS: BP 136/85
[2023-09-20 12:00] VITALS: BP 120/82
[2023-09-20] MEDS ORDERED: SODIUM CHLORIDE 0.9% 10 ML VIAL IV SCH (13:40)
[2023-09-20] MEDS ORDERED: SODIUM CHLORIDE 0.9% 1,000 ML IV SCH (13:45)
[2023-09-20] MEDS ORDERED: SODIUM CHLORIDE 0.9% 1,000 ML IV ONE (13:50)
[2023-09-20] MEDS ORDERED: CALCIUM CARBONATE/VITAMIN D3 500 MG/200 IU TABLET PO SCH (14:00)
[2023-09-20 16:00] VITALS: BP 139/51
[2023-09-20] MEDS ORDERED: Lubiprostone 24 MCG CAP PO SCH (20:55)
[2023-09-21] VITALS: BP 148/86
[2023-09-21 07:35] LABS: BASO % 0.2 % (0.0-1.0); EOS # 0.1 10*3/uL (0.0-0.4); EOS % 1.3 % (1.0-4.0); HEMATOCRIT 30.4 % (37.0-47.0); LYMPH # 1.2 10*3/uL (1.3-4.4); MEAN CELL VOLUME 89.9 fl (81.0-99.0); MEAN CORPUSCULAR HGB 28.1 pg (27.0-31.0); MEAN CORPUSCULAR HGB CONC 31.3 g/dl (33.0-37.0); MONO # 0.3 10*3/uL (0.1-1.0); MONO % 5.1 % (3.0-9.0); NEUT # 4.4 10*3/uL (2.3-7.9); NEUT % 72.4 % (47.0-73.0); NUCLEATED RED BLOOD CELL 0.1 10*3/uL (0.0-0.0); PLATELET COUNT AUTOMATED 432 10*3/uL (130-400); RED BLOOD COUNT 3.38 10*6/uL (4.10-5.10); RED CELL DISTRI WIDTH 19.9 % (0-14.5); WHITE BLOOD COUNT 6.1 10*3/uL (4.8-10.8)
[2023-09-21 08:00] VITALS: BP 120/84
[2023-09-21 08:14] LABS: ALKALINE PHOSPHATASE 98 U/L (46-116); CHLORIDE 105 mmol/L (98-107); POTASSIUM 3.5 mmol/L (3.4-5.1); SGPT/ALT 12 U/L (5-49); TOTAL PROTEIN 4.9 gm/dL (6.0-8.0)
[2023-09-21 08:27] LABS: BUN < 5 mg/dl (9-23)
[2023-09-21] MEDS ORDERED: CALCIUM GLUCONATE 1 GM/10 ML VIAL T ONE (08:50)
[2023-09-21 12:00] VITALS: BP 120/68
[2023-09-21 16:00] VITALS: BP 124/80
[2023-09-21 20:00] VITALS: BP 131/90
[2023-09-22] VITALS: BP 128/82
[2023-09-22 06:07] LABS: BASO % 0.2 % (0.0-1.0); EOS # 0.2 10*3/uL (0.0-0.4); EOS % 3.9 % (1.0-4.0); HEMATOCRIT 27.9 % (37.0-47.0); LYMPH # 1.7 10*3/uL (1.3-4.4); LYMPH % 29.4 % (27.0-41.0); MEAN CELL VOLUME 92.4 fl (81.0-99.0); MEAN CORPUSCULAR HGB 28.5 pg (27.0-31.0); MEAN CORPUSCULAR HGB CONC 30.8 g/dl (33.0-37.0); MEAN PLATELET VOLUME 8.7 fl (9.6-12.3); MONO # 0.4 10*3/uL (0.1-1.0); MONO % 6.2 % (3.0-9.0); NEUT # 3.4 10*3/uL (2.3-7.9); NEUT % 59.4 % (47.0-73.0); NUCLEATED RED BLOOD CELL 0.4 % (0.0-0.0); PLATELET COUNT AUTOMATED 359 10*3/uL (130-400); RED BLOOD COUNT 3.02 10*6/uL (4.10-5.10); RED CELL DISTRI WIDTH 19.9 % (0-14.5); WHITE BLOOD COUNT 5.7 10*3/uL (4.8-10.8)
[2023-09-22 06:27] LABS: ALKALINE PHOSPHATASE 79 U/L (46-116); BUN 5 mg/dl (9-23); CHLORIDE 109 mmol/L (98-107); POTASSIUM 2.9 mmol/L (3.4-5.1); SGPT/ALT 10 U/L (5-49); TOTAL PROTEIN 4.2 gm/dL (6.0-8.0)
[2023-09-22] MEDS ORDERED: MAGNESIUM SULFATE 50 ML IV ONE (07:00)
[2023-09-22] MEDS ORDERED: CALCIUM GLUC IN NACL, ISO-OSM 100 ML IV SCH (07:30)
[2023-09-22 08:00] VITALS: BP 123/74
[2023-09-22] MEDS ORDERED: Phosphorus/Potassium 1.45 GM PACKET PO SCH (08:00)
[2023-09-22] MEDS ORDERED: MAGNESIUM OXIDE 400 MG TAB PO SCH (10:00)
[2023-09-22] MEDS ORDERED: POTASSIUM CHLORIDE 20 MEQ TAB PO SCH (10:00)
[2023-09-22 12:00] VITALS: BP 120/68
[2023-09-22 16:00] VITALS: BP 145/71
[2023-09-22 20:00] VITALS: BP 117/66
[2023-09-23] VITALS: BP 125/63
[2023-09-23 06:09] LABS: MEAN CELL VOLUME 90.3 fl (81.0-99.0); MEAN CORPUSCULAR HGB 28.3 pg (27.0-31.0); MEAN CORPUSCULAR HGB CONC 31.4 g/dl (33.0-37.0); MEAN PLATELET VOLUME 9.2 fl (9.6-12.3); NUCLEATED RED BLOOD CELL 0.1 10*3/uL (0.0-0.0); NUCLEATED RED BLOOD CELL 1.1 % (0.0-0.0); PLATELET COUNT AUTOMATED 385 10*3/uL (130-400); RED BLOOD COUNT 3.21 10*6/uL (4.10-5.10); RED CELL DISTRI WIDTH 19.9 % (0-14.5); WHITE BLOOD COUNT 7.3 10*3/uL (4.8-10.8)
[2023-09-23 06:12] LABS: ALKALINE PHOSPHATASE 90 U/L (46-116); BUN 7 mg/dl (9-23); CHLORIDE 107 mmol/L (98-107); POTASSIUM 3.5 mmol/L (3.4-5.1); SGPT/ALT 11 U/L (5-49); TOTAL PROTEIN 4.7 gm/dL (6.0-8.0)
[2023-09-23 06:25] LABS: MANUAL DIFF REFLEX YES
[2023-09-23 07:42] LABS: OVALOCYTES FEW; TOTAL CELLS COUNTED 100 #CELLS
[2023-09-23 07:43] LABS: BURR CELLS FEW; PLATELET SUFFICIENCY NORMAL (NORMAL)
[2023-09-23] MEDS ORDERED: MAGNESIUM SULFATE 50 ML IV ONE (07:50)
[2023-09-23 08:00] VITALS: BP 133/70
[2023-09-23] MEDS ORDERED: HEEL PROTECTOR DEVICE ONE ×2 (09:35→11:35)
[2023-09-23] MEDS ORDERED: FOAM BANDAGE 5X5 T ONE (09:35)
[2023-09-23] MEDS ORDERED: CHAIR CUSHION DEVICE ONE ×2 (09:35→11:35)
[2023-09-23] MEDS ORDERED: FOAM BANDAGE HEEL T ONE (11:35)
[2023-09-23 12:00] VITALS: BP 134/68
[2023-09-23] MEDS ORDERED: Menthol/Zinc Oxide 4 GM THIN T PRN (13:00)
[2023-09-23 16:00] VITALS: BP 123/80
[2023-09-23 20:00] VITALS: BP 127/62
[2023-09-23] MEDS ORDERED: AQUAPHOR OINTMENT Base 50 GM TUBE T SCH (22:00)
[2023-09-23] MEDS ORDERED: Menthol/Zinc Oxide 4 GM THIN T SCH (22:00)
[2023-09-24] VITALS: BP 150/66
[2023-09-24 08:00] VITALS: BP 148/83
[2023-09-24 12:00] VITALS: BP 125/69
[2023-09-24 13:00] LABS: HEMATOCRIT 27.7 % (37.0-47.0); MEAN CELL VOLUME 89.4 fl (81.0-99.0); MEAN CORPUSCULAR HGB CONC 32.5 g/dl (33.0-37.0); NUCLEATED RED BLOOD CELL 0.1 10*3/uL (0.0-0.0); PLATELET COUNT AUTOMATED 341 10*3/uL (130-400); RED CELL DISTRI WIDTH 20.3 % (0-14.5); WHITE BLOOD COUNT 7.1 10*3/uL (4.8-10.8)
[2023-09-24] MEDS ORDERED: Doxycycline Hyclate 100 MG in SODIUM CHLORIDE 0.9% 250 ML IV SCH (13:00)
[2023-09-24 13:07] LABS: MANUAL DIFF REFLEX YES
[2023-09-24 13:22] LABS: ALKALINE PHOSPHATASE 94 U/L (46-116); BUN 7 mg/dl (9-23); CHLORIDE 104 mmol/L (98-107); POTASSIUM 3.7 mmol/L (3.4-5.1); SGPT/ALT 11 U/L (5-49); TOTAL PROTEIN 4.7 gm/dL (6.0-8.0)
[2023-09-24 13:33] LABS: TOTAL CELLS COUNTED 100 #CELLS
[2023-09-24 13:34] LABS: PLATELET SUFFICIENCY NORMAL (NORMAL)
[2023-09-24 13:38] LABS: MICROCYTOSIS SLIGHT
[2023-09-24] MEDS ORDERED: MAGNESIUM SULFATE 100 ML IV ONE (15:15)
[2023-09-24 15:33] VITALS: BP 121/71
[2023-09-24] MEDS ORDERED: MAGNESIUM OXIDE 400 MG TAB PO SCH (18:00)
[2023-09-24 20:00] VITALS: BP 136/58
[2023-09-25] VITALS: BP 136/58
[2023-09-25 08:00] VITALS: BP 146/77
[2023-09-25 11:52] VITALS: BP 137/63
[2023-09-25 13:33] LABS: ALKALINE PHOSPHATASE 90 U/L (46-116); BUN 6 mg/dl (9-23); CHLORIDE 107 mmol/L (98-107); POTASSIUM 4.3 mmol/L (3.4-5.1); SGPT/ALT 12 U/L (5-49); TOTAL PROTEIN 4.6 gm/dL (6.0-8.0)
[2023-09-25 16:00] VITALS: BP 140/74
[2023-09-25 20:00] VITALS: BP 150/90
[2023-09-25 21:26] LABS: HEMATOCRIT 29.2 % (37.0-47.0); MEAN CELL VOLUME 89.6 fl (81.0-99.0); MEAN CORPUSCULAR HGB 28.5 pg (27.0-31.0); MEAN CORPUSCULAR HGB CONC 31.8 g/dl (33.0-37.0); MEAN PLATELET VOLUME 8.7 fl (9.6-12.3); NUCLEATED RED BLOOD CELL 0.2 10*3/uL (0.0-0.0); NUCLEATED RED BLOOD CELL 2.6 % (0.0-0.0); PLATELET COUNT AUTOMATED 392 10*3/uL (130-400); RED BLOOD COUNT 3.26 10*6/uL (4.10-5.10); RED CELL DISTRI WIDTH 20.4 % (0-14.5)
[2023-09-25 21:28] LABS: MANUAL DIFF REFLEX YES
[2023-09-25 21:47] LABS: ALKALINE PHOSPHATASE 97 U/L (46-116); BUN 7 mg/dl (9-23); CHLORIDE 105 mmol/L (98-107); POTASSIUM 4.1 mmol/L (3.4-5.1); SGPT/ALT 12 U/L (5-49)
[2023-09-25 21:50] LABS: PLATELET SUFFICIENCY NORMAL (NORMAL); TOTAL CELLS COUNTED 100 #CELLS
[2023-09-25 21:51] LABS: ACANTHOCYTES FEW; POLYCHROMASIA SLIGHT
[2023-09-25 21:54] LABS: BURR CELLS FEW
[2023-09-25] MEDS ORDERED: ZOLPIDEM TARTRATE 5 MG TAB PO PRN (22:00)
[2023-09-26] VITALS: BP 141/71
[2023-09-26 08:00] VITALS: BP 133/74
[2023-09-26] MEDS ORDERED: MAGNESIUM SULFATE 100 ML IV ONE (09:30)
[2023-09-26 12:00] VITALS: BP 122/73
[2023-09-26 16:00] VITALS: BP 144/92
[2023-09-26 20:00] VITALS: BP 135/69
[2023-09-27] VITALS: BP 130/64
[2023-09-27 07:09] LABS: ALKALINE PHOSPHATASE 98 U/L (46-116); BUN 5 mg/dl (9-23); CHLORIDE 105 mmol/L (98-107); POTASSIUM 4.7 mmol/L (3.4-5.1); SGPT/ALT 10 U/L (5-49); TOTAL PROTEIN 4.7 gm/dL (6.0-8.0)
[2023-09-27 08:00] VITALS: BP 133/61
[2023-09-27 12:00] VITALS: BP 133/66
[2023-09-27] MEDS ORDERED: MAGNESIUM SULFATE 100 ML IV ONE (13:25)
[2023-09-27 19:58] VITALS: BP 151/74
[2023-09-28] VITALS: BP 146/78
[2023-09-28 06:41] LABS: HEMATOCRIT 25.9 % (37.0-47.0); MEAN CELL VOLUME 89.6 fl (81.0-99.0); MEAN CORPUSCULAR HGB 28.7 pg (27.0-31.0); MEAN PLATELET VOLUME 9.3 fl (9.6-12.3); NUCLEATED RED BLOOD CELL 0.1 10*3/uL (0.0-0.0); NUCLEATED RED BLOOD CELL 1.1 % (0.0-0.0); PLATELET COUNT AUTOMATED 326 10*3/uL (130-400); RED BLOOD COUNT 2.89 10*6/uL (4.10-5.10); WHITE BLOOD COUNT 9.1 10*3/uL (4.8-10.8)
[2023-09-28 06:42] LABS: MANUAL DIFF REFLEX YES
[2023-09-28 07:13] LABS: BURR CELLS FEW; OVALOCYTES FEW; PLATELET SUFFICIENCY NORMAL (NORMAL); POLYCHROMASIA SLIGHT; SCHISTOCYTES FEW; TOTAL CELLS COUNTED 100 #CELLS
[2023-09-28 08:00] VITALS: BP 121/53
[2023-09-28 12:00] VITALS: BP 133/66
[2023-09-28 16:00] VITALS: BP 112/57
[2023-09-28 19:31] VITALS: BP 134/69
[2023-09-29] VITALS: BP 149/68
[2023-09-29 05:03] LABS: ALKALINE PHOSPHATASE 97 U/L (46-116); CHLORIDE 104 mmol/L (98-107); POTASSIUM 4.7 mmol/L (3.4-5.1); SGPT/ALT 9 U/L (5-49); TOTAL PROTEIN 4.6 gm/dL (6.0-8.0)
[2023-09-29 05:05] LABS: BUN < 5 mg/dl (9-23)
[2023-09-29 06:27] LABS: HEMATOCRIT 25.7 % (37.0-47.0); MEAN CELL VOLUME 90.8 fl (81.0-99.0); MEAN CORPUSCULAR HGB 28.6 pg (27.0-31.0); MEAN CORPUSCULAR HGB CONC 31.5 g/dl (33.0-37.0); MEAN PLATELET VOLUME 9.5 fl (9.6-12.3); NUCLEATED RED BLOOD CELL 0.1 10*3/uL (0.0-0.0); NUCLEATED RED BLOOD CELL 1.3 % (0.0-0.0); PLATELET COUNT AUTOMATED 344 10*3/uL (130-400); RED BLOOD COUNT 2.83 10*6/uL (4.10-5.10); RED CELL DISTRI WIDTH 20.8 % (0-14.5); WHITE BLOOD COUNT 9.8 10*3/uL (4.8-10.8)
[2023-09-29 06:32] LABS: MANUAL DIFF REFLEX YES
[2023-09-29 07:08] LABS: TOTAL CELLS COUNTED 100 #CELLS
[2023-09-29 07:09] LABS: BURR CELLS FEW; OVALOCYTES FEW; PLATELET SUFFICIENCY NORMAL (NORMAL); POLYCHROMASIA SLIGHT; ROULEAUX SLIGHT; SCHISTOCYTES FEW
[2023-09-29 08:00] VITALS: BP 145/67
[2023-09-29] MEDS ORDERED: NYSTATIN 15 GM BOT T SCH (10:00)
[2023-09-29 12:00] VITALS: BP 143/74
[2023-09-29] MEDS ORDERED: FOAM BANDAGE HEEL T ONE (14:31)
[2023-09-29 16:00] VITALS: BP 135/79
[2023-09-29 19:21] VITALS: BP 142/71
[2023-09-30] VITALS: BP 170/74
[2023-09-30 08:00] VITALS: BP 139/66
[2023-09-30 12:00] VITALS: BP 128/79
[2023-09-30 16:00] VITALS: BP 110/53
[2023-09-30 20:00] VITALS: BP 123/68
[2023-10-01] VITALS: BP 107/49
[2023-10-01 06:27] LABS: HEMATOCRIT 26.6 % (37.0-47.0); MEAN CELL VOLUME 92.4 fl (81.0-99.0); MEAN CORPUSCULAR HGB 28.1 pg (27.0-31.0); MEAN CORPUSCULAR HGB CONC 30.5 g/dl (33.0-37.0); MEAN PLATELET VOLUME 9.2 fl (9.6-12.3); NUCLEATED RED BLOOD CELL 0.2 10*3/uL (0.0-0.0); NUCLEATED RED BLOOD CELL 2.2 % (0.0-0.0); PLATELET COUNT AUTOMATED 373 10*3/uL (130-400); RED BLOOD COUNT 2.88 10*6/uL (4.10-5.10); RED CELL DISTRI WIDTH 21.7 % (0-14.5); WHITE BLOOD COUNT 9.7 10*3/uL (4.8-10.8)
[2023-10-01 06:34] LABS: MANUAL DIFF REFLEX YES
[2023-10-01 06:47] LABS: ALKALINE PHOSPHATASE 97 U/L (46-116); CHLORIDE 105 mmol/L (98-107); POTASSIUM 4.4 mmol/L (3.4-5.1); SGPT/ALT 8 U/L (5-49); TOTAL PROTEIN 4.6 gm/dL (6.0-8.0)
[2023-10-01 06:48] LABS: BUN < 5 mg/dl (9-23)
[2023-10-01 08:00] VITALS: BP 131/60
[2023-10-01 08:10] LABS: BASOPHILS 1 % (0-1); MICROCYTOSIS SLIGHT; PLATELET SUFFICIENCY NORMAL (NORMAL); TOTAL CELLS COUNTED 100 #CELLS
[2023-10-01 08:11] LABS: BURR CELLS FEW; POLYCHROMASIA SLIGHT
[2023-10-01 12:00] VITALS: BP 140/64
[2023-10-01] MEDS ORDERED: PANTOPRAZOLE SO40 MG PO (14:26)
[2023-10-01] MEDS ORDERED: ATORVASTATIN CA80 M1 PO (14:26)
[2023-10-01] MEDS ORDERED: SODIUM-POTASSI1 EACH PO (14:26)
[2023-10-01] MEDS ORDERED: OYSTER SHELL 51 EAC4 PO (14:26)
[2023-10-01] MEDS ORDERED: MAGNESIUM OXID400 MG PO (14:26)
[2023-10-01] MEDS ORDERED: NICODERM T (14:26)
[2023-10-01] MEDS ORDERED: LINZESS145 MC1 PO (14:27)
[2023-10-07] MEDS ORDERED: ATIVAN0.5 MG PO (21:40)
[2023-10-07] MEDS ORDERED: MIRALAX119 GM PO (21:41)
[2023-10-07] MEDS ORDERED: GLUCOPHAGE500 MG PO (21:43)
[2023-10-07] MEDS ORDERED: MAGNESIUM OXID400 MG PO (21:45)
== END 2023-10-01 17:18 | DRG 720 ==
LOC: ED 22:29 → ICCU 09-18 03:39 → EDHOLD 09-18 03:39 → 5E 09-18 03:39 → EDHOLD 09-18 03:57 → ICCU 09-18 04:20 → 5E 09-19 18:37
PROVIDERS: Internal Medicine; Internal Medicine Nephrology; ADMIT Internal Medicine; ATTEND Internal Medicine
PROC: 02HV33Z Insertion of Infusion Device into Superior Vena Cava, Percutaneous Approach (ICD-10-PCS; principal; 2023-09-18)
PROC: B548ZZA Ultrasonography of Superior Vena Cava, Guidance (ICD-10-PCS; 2023-09-18)
DX: A41.9 Sepsis, unspecified organism (principal); G93.41 Metabolic encephalopathy; K56.600 Partial intestinal obstruction, unspecified as to cause; E43 Unspecified severe protein-calorie malnutrition; D61.818 Other pancytopenia; E83.51 Hypocalcemia; E87.3 Alkalosis; E87.1 Hypo-osmolality and hyponatremia; E87.20 Acidosis, unspecified; J18.9 Pneumonia, unspecified organism; J44.0 Chronic obstructive pulmonary disease with (acute) lower respiratory infection; E83.39 Other disorders of phosphorus metabolism; E87.6 Hypokalemia; N39.0 Urinary tract infection, site not specified; R65.20 Severe sepsis without septic shock; E83.42 Hypomagnesemia; G89.29 Other chronic pain; M54.9 Dorsalgia, unspecified; K21.9 Gastro-esophageal reflux disease without esophagitis; K31.84 Gastroparesis; F17.210 Nicotine dependence, cigarettes, uncomplicated; E87.8 Other disorders of electrolyte and fluid balance, not elsewhere classified; E78.5 Hyperlipidemia, unspecified; I25.10 Atherosclerotic heart disease of native coronary artery without angina pectoris; E66.01 Morbid (severe) obesity due to excess calories; I50.9 Heart failure, unspecified; K52.9 Noninfective gastroenteritis and colitis, unspecified; E86.0 Dehydration; E11.43 Type 2 diabetes mellitus with diabetic autonomic (poly)neuropathy; F41.9 Anxiety disorder, unspecified; Z90.49 Acquired absence of other specified parts of digestive tract; Z98.42 Cataract extraction status, left eye; Z79.899 Other long term (current) drug therapy; Z79.01 Long term (current) use of anticoagulants; Z79.2 Long term (current) use of antibiotics; Z79.84 Long term (current) use of oral hypoglycemic drugs; Z88.0 Allergy status to penicillin; Z88.8 Allergy status to other drugs, medicaments and biological substances; Z91.09 Other allergy status, other than to drugs and biological substances; Z90.710 Acquired absence of both cervix and uterus; Z82.49 Family history of ischemic heart disease and other diseases of the circulatory system; Z83.3 Family history of diabetes mellitus; Z98.41 Cataract extraction status, right eye; Z68.36 Body mass index [BMI] 36.0-36.9, adult

== ENCOUNTER 2023-10-04 00:35 | Emergency (ER) | payer OTHER ==
[~2023-10-04] VITALS: Ht 157.4 cm; Wt 108.9 kg
[~2023-10-04 00:35] MED LIST changes: +ATORVASTATIN CA80 M1 PO; +LINZESS145 MC1 PO; +MAGNESIUM OXID400 MG PO; +NICODERM T; +OYSTER SHELL 51 EAC4 PO; +PANTOPRAZOLE SO40 MG PO; +SODIUM-POTASSI1 EACH PO
[2023-10-04 01:20] LABS: BASO % 0.2 % (0.0-1.0); EOS # 0.1 10*3/uL (0.0-0.4); EOS % 0.8 % (1.0-4.0); HEMATOCRIT 29.6 % (37.0-47.0); LYMPH # 1.6 10*3/uL (1.3-4.4); LYMPH % 16.4 % (27.0-41.0); MEAN CORPUSCULAR HGB 28.6 pg (27.0-31.0); MEAN CORPUSCULAR HGB CONC 30.4 g/dl (33.0-37.0); MEAN PLATELET VOLUME 9.4 fl (9.6-12.3); MONO # 0.6 10*3/uL (0.1-1.0); MONO % 5.9 % (3.0-9.0); NEUT # 7.3 10*3/uL (2.3-7.9); NEUT % 76.2 % (47.0-73.0); NUCLEATED RED BLOOD CELL 0.1 10*3/uL (0.0-0.0); PLATELET COUNT AUTOMATED 443 10*3/uL (130-400); RED BLOOD COUNT 3.15 10*6/uL (4.10-5.10); RED CELL DISTRI WIDTH 22.3 % (0-14.5); WHITE BLOOD COUNT 9.5 10*3/uL (4.8-10.8)
[2023-10-04 01:42] LABS: ALKALINE PHOSPHATASE 109 U/L (46-116); BUN < 5 mg/dl (9-23); CHLORIDE 103 mmol/L (98-107); POTASSIUM 3.9 mmol/L (3.4-5.1); SGPT/ALT 16 U/L (5-49); TOTAL PROTEIN 5.2 gm/dL (6.0-8.0)
[2023-10-04] MEDS ORDERED: MAGNESIUM SULFATE 50 ML IV ONE (02:15)
[2023-10-04 02:32] LABS: BILIRUBIN Negative (Negative); BLOOD Negative (Negative); CLARITY Clear (Clear); COLOR Yellow (Yellow); GLUCOSE Negative (Negative); KETONE Negative (Negative); LEUKO ESTERASE Negative (Negative); NITRITE Negative (Negative); UROBILINOGEN 0.2 E.U./dl (0.0-1.0)
[2023-10-04 03:17] LABS: BACTERIA TRACE; WBC 0-2 wbc/hpf (0-5)
[2023-10-07] MEDS ORDERED: ATIVAN0.5 MG PO (21:40)
[2023-10-07] MEDS ORDERED: MIRALAX119 GM PO (21:41)
[2023-10-07] MEDS ORDERED: GLUCOPHAGE500 MG PO (21:43)
[2023-10-07] MEDS ORDERED: MAGNESIUM OXID400 MG PO (21:45)
== END 2023-10-04 06:02 ==
LOC: ED 00:35
PROVIDERS: Emergency Medicine
DX: R07.89 Other chest pain (principal); E83.42 Hypomagnesemia; I11.0 Hypertensive heart disease with heart failure; I50.9 Heart failure, unspecified; J44.9 Chronic obstructive pulmonary disease, unspecified; K21.9 Gastro-esophageal reflux disease without esophagitis; E83.51 Hypocalcemia; E87.6 Hypokalemia; E87.1 Hypo-osmolality and hyponatremia; E11.9 Type 2 diabetes mellitus without complications; F41.9 Anxiety disorder, unspecified; E78.00 Pure hypercholesterolemia, unspecified; M19.90 Unspecified osteoarthritis, unspecified site; Z88.8 Allergy status to other drugs, medicaments and biological substances; Z88.0 Allergy status to penicillin; Z88.1 Allergy status to other antibiotic agents; Z90.710 Acquired absence of both cervix and uterus; Z90.49 Acquired absence of other specified parts of digestive tract; Z98.890 Other specified postprocedural states; Z86.73 Personal history of transient ischemic attack (TIA), and cerebral infarction without residual deficits

== ENCOUNTER 2023-10-18 19:04 | Emergency (ER) | payer OTHER ==
[~2023-10-18] VITALS: Ht 175.2 cm; Wt 113.4 kg
[~2023-10-18 19:04] MED LIST changes: +ALDACTONE25 MG PO; +GLUCOPHAGE500 MG PO; +JARDIANCE25 MG PO; +MIRALAX119 GM PO; +NYAMYC15 GM T
[2023-10-18 19:25] LABS: BASO % 0.1 % (0.0-1.0); EOS # 0.2 10*3/uL (0.0-0.4); EOS % 2.4 % (1.0-4.0); HEMATOCRIT 28.4 % (37.0-47.0); LYMPH # 1.5 10*3/uL (1.3-4.4); LYMPH % 16.4 % (27.0-41.0); MEAN CELL VOLUME 97.6 fl (81.0-99.0); MEAN CORPUSCULAR HGB 28.9 pg (27.0-31.0); MEAN CORPUSCULAR HGB CONC 29.6 g/dl (33.0-37.0); MEAN PLATELET VOLUME 8.7 fl (9.6-12.3); MONO # 0.5 10*3/uL (0.1-1.0); MONO % 5.4 % (3.0-9.0); NEUT # 6.8 10*3/uL (2.3-7.9); NUCLEATED RED BLOOD CELL 0.2 % (0.0-0.0); PLATELET COUNT AUTOMATED 579 10*3/uL (130-400); RED BLOOD COUNT 2.91 10*6/uL (4.10-5.10); RED CELL DISTRI WIDTH 21.6 % (0-14.5); WHITE BLOOD COUNT 9.1 10*3/uL (4.8-10.8)
[2023-10-18 19:48] LABS: ALKALINE PHOSPHATASE 92 U/L (46-116); CHLORIDE 105 mmol/L (98-107); POTASSIUM 3.5 mmol/L (3.4-5.1); SGPT/ALT 7 U/L (5-49)
[2023-10-18 19:52] LABS: BUN < 5 mg/dl (9-23)
[2023-10-18] MEDS ORDERED: FLUCONAZOLE 150 MG TAB PO ONE (21:25)
== END 2023-10-18 23:01 ==
LOC: ED 19:04
PROVIDERS: Internal Medicine
DX: R07.89 Other chest pain (principal); D64.9 Anemia, unspecified; E43 Unspecified severe protein-calorie malnutrition; Z68.1 Body mass index [BMI] 19.9 or less, adult; Z88.0 Allergy status to penicillin; Z88.1 Allergy status to other antibiotic agents; Z88.8 Allergy status to other drugs, medicaments and biological substances; Z90.710 Acquired absence of both cervix and uterus; Z98.890 Other specified postprocedural states; F17.210 Nicotine dependence, cigarettes, uncomplicated

== ENCOUNTER 2023-10-23 15:49 | Emergency (ER) | payer OTHER ==
[~2023-10-23] VITALS: Ht 157.4 cm; Wt 98.9 kg
[2023-10-23 16:23] LABS: BASO % 0.2 % (0.0-1.0); EOS # 0.4 10*3/uL (0.0-0.4); EOS % 3.6 % (1.0-4.0); HEMATOCRIT 28.3 % (37.0-47.0); LYMPH # 2.2 10*3/uL (1.3-4.4); LYMPH % 20.3 % (27.0-41.0); MEAN CELL VOLUME 96.9 fl (81.0-99.0); MEAN CORPUSCULAR HGB 30.1 pg (27.0-31.0); MEAN CORPUSCULAR HGB CONC 31.1 g/dl (33.0-37.0); MEAN PLATELET VOLUME 8.9 fl (9.6-12.3); MONO # 0.8 10*3/uL (0.1-1.0); MONO % 6.9 % (3.0-9.0); NEUT # 7.5 10*3/uL (2.3-7.9); NEUT % 68.3 % (47.0-73.0); NUCLEATED RED BLOOD CELL 0.3 % (0.0-0.0); PLATELET COUNT AUTOMATED 547 10*3/uL (130-400); RED BLOOD COUNT 2.92 10*6/uL (4.10-5.10)
[2023-10-23 16:47] LABS: ALKALINE PHOSPHATASE 135 U/L (46-116); BUN < 5 mg/dl (9-23); CHLORIDE 105 mmol/L (98-107); POTASSIUM 3.1 mmol/L (3.4-5.1); SGPT/ALT 11 U/L (5-49); TOTAL PROTEIN 5.4 gm/dL (6.0-8.0)
[2023-10-23] MEDS ORDERED: POTASSIUM CHLORIDE 20 MEQ TAB PO ONE (17:15)
[2023-10-23] MEDS ORDERED: VIBRAMYCIN100 MG PO (17:21)
== END 2023-10-23 18:35 | disposition home or self-care (01) ==
LOC: ED 15:49
PROVIDERS: Internal Medicine
DX: R07.89 Other chest pain (principal); F17.210 Nicotine dependence, cigarettes, uncomplicated; Z88.8 Allergy status to other drugs, medicaments and biological substances; Z88.0 Allergy status to penicillin; Z88.1 Allergy status to other antibiotic agents; Z79.899 Other long term (current) drug therapy; Z79.82 Long term (current) use of aspirin; Z90.711 Acquired absence of uterus with remaining cervical stump; Z98.890 Other specified postprocedural states

== ENCOUNTER 2023-10-25 11:58 | Inpatient (IN) | payer OTHER ==
[~2023-10-25] VITALS: Ht 157.4 cm; Wt 104.8 kg
[2023-10-25 12:00] VITALS: BP 131/65
[2023-10-25] MEDS ORDERED: MAGNESIUM SULFATE 50 ML IV ONE (12:30)
[2023-10-25 12:32] LABS: BASO % 0.1 % (0.0-1.0); EOS # 0.5 10*3/uL (0.0-0.4); EOS % 4.3 % (1.0-4.0); HEMATOCRIT 27.7 % (37.0-47.0); LYMPH # 1.7 10*3/uL (1.3-4.4); LYMPH % 13.7 % (27.0-41.0); MEAN CELL VOLUME 95.8 fl (81.0-99.0); MEAN CORPUSCULAR HGB 29.8 pg (27.0-31.0); MEAN PLATELET VOLUME 9.1 fl (9.6-12.3); MONO # 0.6 10*3/uL (0.1-1.0); MONO % 4.9 % (3.0-9.0); NEUT # 9.6 10*3/uL (2.3-7.9); NUCLEATED RED BLOOD CELL 0.2 % (0.0-0.0); PLATELET COUNT AUTOMATED 554 10*3/uL (130-400); RED BLOOD COUNT 2.89 10*6/uL (4.10-5.10); RED CELL DISTRI WIDTH 20.7 % (0-14.5); WHITE BLOOD COUNT 12.6 10*3/uL (4.8-10.8)
[2023-10-25 12:51] LABS: BUN 6 mg/dl (9-23); CHLORIDE 103 mmol/L (98-107); POTASSIUM 3.2 mmol/L (3.4-5.1)
[2023-10-25 12:56] LABS: ETHYL ALCOHOL < 3.0 mg/dl (<3)
[2023-10-25 13:00] LABS: BILIRUBIN Negative (Negative); BLOOD Negative (Negative); CLARITY Clear (Clear); COLOR Yellow (Yellow); GLUCOSE 3+ (Negative); KETONE Negative (Negative); LEUKO ESTERASE Negative (Negative); NITRITE Negative (Negative); SPECIFIC GRAVITY 1.015 (1.001-1.030); UROBILINOGEN 0.2 E.U./dl (0.0-1.0)
[2023-10-25 13:07] LABS: BACTERIA TRACE; EPITHELIAL CELLS 0-2; MUCOUS TRACE; RBC 0-2 rbc/hpf (0-2); URINE AMPHETAMINES Negative (1000ng/ml); URINE BARBITURATES Negative (200ng/ml); URINE BENZODIAZEPINES Negative (200ng/ml); URINE CANNABINOIDS (THC) Negative (50ng/ml); URINE COCAINE Negative (300ng/ml); URINE METHADONE Negative (300ng/ml); URINE OPIATES Negative (300ng/ml); URINE PHENCYCLIDINE Negative (25ng/ml); WBC 0-2 wbc/hpf (0-5)
[2023-10-25] MEDS ORDERED: POTASSIUM CHLORIDE 20 MEQ TAB PO ONE (14:40)
[2023-10-25] MEDS ORDERED: Ceftriaxone Sodium 1 GM/10 ML SYR IV ONE (14:40)
[2023-10-25] MEDS ORDERED: SODIUM CHLORIDE 0.9% 1,000 ML IV ONE (14:40)
[2023-10-25] MEDS ORDERED: DOXYCYCLINE HY100 M3 PO (15:32)
[2023-10-25] MEDS ORDERED: HALOPERIDOL0.5 MG PO (15:39)
[2023-10-25] MEDS ORDERED: PROBIOTIC250 MG PO (15:40)
[2023-10-25] MEDS ORDERED: REMERON15 M2 PO (15:41)
[2023-10-25] MEDS ORDERED: DEPAKOTE SPRIN125 MG PO (15:41)
[2023-10-25] MEDS ORDERED: VISTARIL25 MG PO (15:42)
[2023-10-25] MEDS ORDERED: LOPERAMIDE HCL2 MG PO (15:43)
[2023-10-25] MEDS ORDERED: ACETAMINOPHEN325 M2 PO (15:44)
[2023-10-25 16:23] VITALS: BP 116/60
[2023-10-25 18:39] VITALS: BP 131/67
[2023-10-25] MEDS ORDERED: methylPREDNISolone sod succ 40 MG VIAL IV ONE (19:00)
[2023-10-25] MEDS ORDERED: diphenhydrAMINE hydrochloride 50 MG/ML VIAL IV ONE (19:00)
[2023-10-25 21:11] VITALS: BP 140/68
[2023-10-25] MEDS ORDERED: ACETAMINOPHEN 325 MG TAB PO PRN (22:45)
[2023-10-25] MEDS ORDERED: ATORVASTATIN CALCIUM 80 MG TAB PO SCH (23:00)
[2023-10-25] MEDS ORDERED: DIVALPROEX (DR) 250 MG TAB PO SCH (23:00)
[2023-10-25 23:36] VITALS: BP 116/56
[2023-10-26] MEDS ORDERED: DIVALPROEX (DR) 250 MG TAB PO ONE (00:12)
[2023-10-26 02:25] VITALS: BP 107/51
[2023-10-26 06:25] VITALS: BP 114/54
[2023-10-26] MEDS ORDERED: LORazepam 2 MG/ML VIAL IM ONE (08:35)
[2023-10-26] MEDS ORDERED: LORazepam 0.5 MG TAB PO SCH ×2 (10:00→21:00)
[2023-10-26] MEDS ORDERED: EMPAGLIFLOZIN 25 MG TABLET PO SCH (10:00)
[2023-10-26] MEDS ORDERED: SPIRONOLACTONE 25 MG TAB PO SCH (10:00)
[2023-10-26] MEDS ORDERED: ASPIRIN ENTERIC COATED 81 MG TAB PO SCH (10:00)
[2023-10-26] MEDS ORDERED: SODIUM CHLORIDE 0.9% 1,000 ML IV SCH (10:50)
[2023-10-26 11:24] LABS: BASO % 0.1 % (0.0-1.0); EOS % 0.4 % (1.0-4.0); HEMATOCRIT 23.9 % (37.0-47.0); LYMPH # 1.5 10*3/uL (1.3-4.4); LYMPH % 18.7 % (27.0-41.0); MEAN CELL VOLUME 97.2 fl (81.0-99.0); MEAN CORPUSCULAR HGB 30.1 pg (27.0-31.0); MEAN PLATELET VOLUME 8.6 fl (9.6-12.3); MONO # 0.4 10*3/uL (0.1-1.0); MONO % 5.3 % (3.0-9.0); NEUT # 5.9 10*3/uL (2.3-7.9); NEUT % 74.6 % (47.0-73.0); NUCLEATED RED BLOOD CELL 0.3 % (0.0-0.0); PLATELET COUNT AUTOMATED 455 10*3/uL (130-400); RED BLOOD COUNT 2.46 10*6/uL (4.10-5.10); WHITE BLOOD COUNT 7.9 10*3/uL (4.8-10.8)
[2023-10-26] MEDS ORDERED: Enoxaparin Sodium 40 MG/0.4 ML SYR SC SCH (11:24)
[2023-10-26 11:32] VITALS: BP 121/57
[2023-10-26 11:42] LABS: BUN 5 mg/dl (9-23); CHLORIDE 103 mmol/L (98-107); POTASSIUM 3.4 mmol/L (3.4-5.1)
[2023-10-26 14:11] VITALS: BP 108/55
[2023-10-26 14:27] VITALS: BP 115/50
[2023-10-26] MEDS ORDERED: Loperamide Hydrochloride 2 MG CAP PO PRN (15:55)
[2023-10-26] MEDS ORDERED: Ziprasidone Mesylate 20 MG VIAL IM PRN (16:05)
[2023-10-26] MEDS ORDERED: LORazepam 1 MG TAB PO PRN (16:05)
[2023-10-26] MEDS ORDERED: Water, Sterile 10 ML VIAL IM PRN (16:05)
[2023-10-26] MEDS ORDERED: diphenhydrAMINE hydrochloride 25 MG CAP PO ONE (16:10)
[2023-10-26] MEDS ORDERED: MG-AL HYDROXIDE/SIMETICONE 30 ML UDC PO PRN (16:25)
[2023-10-26] MEDS ORDERED: ACETAMINOPHEN 325 MG TAB PO PRN (16:25)
[2023-10-26] MEDS ORDERED: Magnesium Hydroxide 30 ML UDC PO PRN (16:25)
[2023-10-26] MEDS ORDERED: Insulin Lispro, Recombinant 1 UNIT/0.01 ML UN SC SCH (16:30)
[2023-10-26] MEDS ORDERED: INSULIN LISPRO 1 UNIT/0.01 ML SQ SCH (16:50)
[2023-10-26] MEDS ORDERED: Phosphorus/Potassium 1.45 GM PACKET PO SCH (18:00)
[2023-10-26 20:00] VITALS: BP 133/58
[2023-10-26] MEDS ORDERED: CALCIUM CARBONATE/VITAMIN D3 500 MG/200 IU TABLET PO SCH (21:00)
[2023-10-26] MEDS ORDERED: RISPERIDONE 0.5 MG TAB PO SCH (21:00)
[2023-10-26] MEDS ORDERED: Mirtazapine 15 MG TAB PO SCH (22:00)
[2023-10-27] MEDS ORDERED: Pantoprazole Sodium 40 MG TAB PO SCH (06:00)
[2023-10-27 06:32] LABS: BASO % 0.1 % (0.0-1.0); EOS # 0.6 10*3/uL (0.0-0.4); EOS % 9.3 % (1.0-4.0); LYMPH # 2.3 10*3/uL (1.3-4.4); LYMPH % 33.2 % (27.0-41.0); MEAN CELL VOLUME 95.2 fl (81.0-99.0); MEAN CORPUSCULAR HGB 30.3 pg (27.0-31.0); MEAN CORPUSCULAR HGB CONC 31.8 g/dl (33.0-37.0); MEAN PLATELET VOLUME 8.6 fl (9.6-12.3); MONO # 0.3 10*3/uL (0.1-1.0); MONO % 4.9 % (3.0-9.0); NEUT # 3.5 10*3/uL (2.3-7.9); NEUT % 51.5 % (47.0-73.0); NUCLEATED RED BLOOD CELL 0.4 % (0.0-0.0); PLATELET COUNT AUTOMATED 516 10*3/uL (130-400); RED BLOOD COUNT 2.94 10*6/uL (4.10-5.10); WHITE BLOOD COUNT 6.9 10*3/uL (4.8-10.8)
[2023-10-27 07:01] LABS: ALKALINE PHOSPHATASE 99 U/L (46-116); CHLORIDE 108 mmol/L (98-107); CHOLESTEROL 81 mg/dL (<200); LDL CHOLESTEROL 26 mg/dL (9-159); POTASSIUM 2.9 mmol/L (3.4-5.1); SGPT/ALT 10 U/L (5-49); TRIGLYCERIDES 104 mg/dl (<150)
[2023-10-27 07:03] LABS: BUN < 5 mg/dl (9-23)
[2023-10-27 07:45] LABS: VITAMIN D, 25-HYDROXY 34.2 ng/mL (30-100)
[2023-10-27] MEDS ORDERED: POTASSIUM CHLORIDE 20 MEQ TAB PO ONE (08:10)
[2023-10-27] MEDS ORDERED: CYANOCOBALAMIN 1,000 MCG/ML VIAL IM ONE ×2 (08:16→11:00)
[2023-10-27 08:24] VITALS: BP 127/65
[2023-10-27] MEDS ORDERED: SPIRONOLACTONE 25 MG TAB PO SCH (09:00)
[2023-10-27] MEDS ORDERED: Nicotine 21 MG PATCH T SCH (09:00)
[2023-10-27] MEDS ORDERED: POTASSIUM CHLORIDE IN WATER 100 ML IV SCH (09:00)
[2023-10-27] MEDS ORDERED: Polyethylene Glycol 3350 17 GM PACKET PO SCH (10:00)
[2023-10-27] MEDS ORDERED: Insulin Glargine, Recombinan 300 UNITS/3 ML PEN SC SCH (10:00)
[2023-10-27] MEDS ORDERED: Lactobacillus Acidophilus/LA 1 TAB TAB PO SCH (10:00)
[2023-10-27 11:37] LABS: ABG BASE EXCESS 2.4 mmol/L (-2.0-2.0); ARTERIAL BLOOD GAS PH 7.474 (7.35-7.45)
[2023-10-27] MEDS ORDERED: OLANZAPINE 2.5 MG TAB PO SCH (11:50)
[2023-10-27] MEDS ORDERED: hydrOXYzine hydrochloride 50 MG/ML VIAL IM PRN (14:10)
[2023-10-27] MEDS ORDERED: Acetaminophen/Oxycodone 5 MG/325 MG TABLET PO ONE (14:45)
[2023-10-27 19:56] VITALS: BP 124/81
[2023-10-28] MEDS ORDERED: FOLIC ACID 1 MG TAB PO SCH (09:00)
[2023-10-28 09:23] VITALS: BP 86/50
[2023-10-28] MEDS ORDERED: CYANOCOBALAMIN 1,000 MCG/ML VIAL IM SCH (09:35)
[2023-10-28 20:00] VITALS: BP 116/97
[2023-10-28] MEDS ORDERED: Prazosin Hydrochloride 1 MG CAP PO SCH (21:00)
[2023-10-28] MEDS ORDERED: OLANZAPINE 7.5 MG TAB PO SCH (21:00)
[2023-10-29 07:05] LABS: BASO % 0.3 % (0.0-1.0); EOS # 0.7 10*3/uL (0.0-0.4); EOS % 9.3 % (1.0-4.0); HEMATOCRIT 27.3 % (37.0-47.0); LYMPH # 1.7 10*3/uL (1.3-4.4); MEAN CELL VOLUME 98.6 fl (81.0-99.0); MEAN CORPUSCULAR HGB CONC 30.4 g/dl (33.0-37.0); MEAN PLATELET VOLUME 8.8 fl (9.6-12.3); MONO # 0.4 10*3/uL (0.1-1.0); MONO % 5.5 % (3.0-9.0); NEUT % 63.1 % (47.0-73.0); NUCLEATED RED BLOOD CELL 0.4 % (0.0-0.0); PLATELET COUNT AUTOMATED 479 10*3/uL (130-400); RED BLOOD COUNT 2.77 10*6/uL (4.10-5.10); RED CELL DISTRI WIDTH 21.3 % (0-14.5); WHITE BLOOD COUNT 7.9 10*3/uL (4.8-10.8)
[2023-10-29 07:29] LABS: CHLORIDE 107 mmol/L (98-107); POTASSIUM 3.9 mmol/L (3.4-5.1)
[2023-10-29 07:34] LABS: BUN < 5 mg/dl (9-23)
[2023-10-29 08:34] VITALS: BP 111/62
[2023-10-29] MEDS ORDERED: diphenhydrAMINE hydrochloride 25 MG CAP PO PRN (14:15)
[2023-10-29 19:17] VITALS: BP 124/53
[2023-10-29] MEDS ORDERED: NYSTATIN 15 GM BOT T SCH (21:00)
[2023-10-29] MEDS ORDERED: OLANZAPINE 2.5 MG TAB PO SCH (21:00)
[2023-10-30 07:49] VITALS: BP 104/54
[2023-10-30] MEDS ORDERED: NYSTATIN CREAM 15 GM TUBE T SCH (10:00)
[2023-10-30] MEDS ORDERED: diphenhydrAMINE hydrochloride 25 MG CAP PO SCH (13:00)
[2023-10-30] MEDS ORDERED: methylPREDNISolone sod succ 40 MG VIAL IV ONE (13:25)
[2023-10-30 20:00] VITALS: BP 124/66
[2023-10-30] MEDS ORDERED: Prazosin Hydrochloride 1 MG CAP PO SCH (21:00)
[2023-10-30] MEDS ORDERED: MICONAZOLE NITRATE V SCH (21:00)
[2023-10-31 07:25] VITALS: BP 121/66
[2023-10-31 20:00] VITALS: BP 108/56
[2023-10-31] MEDS ORDERED: OLANZAPINE 7.5 MG TAB PO SCH (21:00)
[2023-11-01 07:38] VITALS: BP 132/60
[2023-11-01] MEDS ORDERED: predniSONE 10 MG TAB PO ONE (14:00)
[2023-11-01 19:04] VITALS: BP 160/40
[2023-11-01] MEDS ORDERED: RISPERIDONE 0.5 MG TAB PO SCH (21:00)
[2023-11-02 06:55] LABS: BASO % 0.1 % (0.0-1.0); EOS # 0.3 10*3/uL (0.0-0.4); EOS % 3.2 % (1.0-4.0); HEMATOCRIT 27.6 % (37.0-47.0); LYMPH # 2.5 10*3/uL (1.3-4.4); LYMPH % 30.6 % (27.0-41.0); MEAN CELL VOLUME 97.9 fl (81.0-99.0); MEAN CORPUSCULAR HGB 29.8 pg (27.0-31.0); MEAN CORPUSCULAR HGB CONC 30.4 g/dl (33.0-37.0); MEAN PLATELET VOLUME 8.8 fl (9.6-12.3); MONO # 0.5 10*3/uL (0.1-1.0); MONO % 6.6 % (3.0-9.0); NEUT # 4.8 10*3/uL (2.3-7.9); NEUT % 58.9 % (47.0-73.0); NUCLEATED RED BLOOD CELL 0.2 % (0.0-0.0); PLATELET COUNT AUTOMATED 469 10*3/uL (130-400); RED BLOOD COUNT 2.82 10*6/uL (4.10-5.10); RED CELL DISTRI WIDTH 20.8 % (0-14.5); WHITE BLOOD COUNT 8.1 10*3/uL (4.8-10.8)
[2023-11-02 07:18] LABS: ALKALINE PHOSPHATASE 133 U/L (46-116); BUN 6 mg/dl (9-23); CHLORIDE 108 mmol/L (98-107); POTASSIUM 3.3 mmol/L (3.4-5.1); SGPT/ALT 15 U/L (5-49); TOTAL PROTEIN 5.2 gm/dL (6.0-8.0)
[2023-11-02 08:00] VITALS: BP 135/59
[2023-11-02 20:00] VITALS: BP 139/64
[2023-11-02] MEDS ORDERED: RISPERIDONE 0.5 MG TAB PO SCH (21:00)
[2023-11-03 20:00] VITALS: BP 141/72
[2023-11-04 06:49] LABS: BASO % 0.4 % (0.0-1.0); EOS # 0.7 10*3/uL (0.0-0.4); EOS % 9.2 % (1.0-4.0); HEMATOCRIT 26.3 % (37.0-47.0); LYMPH # 2.4 10*3/uL (1.3-4.4); LYMPH % 29.9 % (27.0-41.0); MEAN CELL VOLUME 94.9 fl (81.0-99.0); MEAN CORPUSCULAR HGB 30.3 pg (27.0-31.0); MEAN CORPUSCULAR HGB CONC 31.9 g/dl (33.0-37.0); MEAN PLATELET VOLUME 8.8 fl (9.6-12.3); MONO # 0.5 10*3/uL (0.1-1.0); MONO % 6.7 % (3.0-9.0); NEUT # 4.2 10*3/uL (2.3-7.9); NEUT % 53.4 % (47.0-73.0); NUCLEATED RED BLOOD CELL 0.3 % (0.0-0.0); PLATELET COUNT AUTOMATED 411 10*3/uL (130-400); RED BLOOD COUNT 2.77 10*6/uL (4.10-5.10); RED CELL DISTRI WIDTH 20.3 % (0-14.5); WHITE BLOOD COUNT 7.9 10*3/uL (4.8-10.8)
[2023-11-04 07:13] LABS: ALKALINE PHOSPHATASE 123 U/L (46-116); BUN 6 mg/dl (9-23); CHLORIDE 107 mmol/L (98-107); POTASSIUM 3.3 mmol/L (3.4-5.1); SGPT/ALT 15 U/L (5-49)
[2023-11-04 08:31] VITALS: BP 131/62
[2023-11-04] MEDS ORDERED: Rivastigmine Tartrate 4.6 MG/24 HR PATCH T SCH (10:01)
[2023-11-04] MEDS ORDERED: POTASSIUM CHLORIDE 20 MEQ TAB PO ONE (12:35)
[2023-11-04 20:00] VITALS: BP 120/87
[2023-11-05] MEDS ORDERED: Menthol/Zinc Oxide 4 GM THIN T PRN (14:45)
[2023-11-05 19:06] VITALS: BP 132/99
[2023-11-05] MEDS ORDERED: Menthol/Zinc Oxide 4 GM THIN T SCH (22:00)
[2023-11-06 07:45] VITALS: BP 120/66
[2023-11-06] MEDS ORDERED: Rivastigmine Tartrate 9.5 MG/24 HR PATCH T SCH (09:00)
[2023-11-06 20:00] VITALS: BP 136/61
[2023-11-07 08:00] VITALS: BP 130/70
[2023-11-07] MEDS ORDERED: LORazepam 1 MG TAB PO PRN (09:55)
[2023-11-07] MEDS ORDERED: LORazepam 1 MG TAB ONE (10:07)
[2023-11-07] MEDS ORDERED: Memantine Hydrochloride 5 MG TAB PO SCH (10:20)
[2023-11-07] MEDS ORDERED: CORTIZONE-1028 GM T (14:57)
[2023-11-07 20:00] VITALS: BP 127/97
[2023-11-07] MEDS ORDERED: RISPERIDONE 1 MG TAB PO SCH (21:00)
[2023-11-07] MEDS ORDERED: HYDROCORTISONE 1% CREAM 14.2 GM TUBE T SCH (21:00)
[2023-11-08 07:08] LABS: BASO % 0.2 % (0.0-1.0); EOS % 11.1 % (1.0-4.0); HEMATOCRIT 25.2 % (37.0-47.0); LYMPH # 1.7 10*3/uL (1.3-4.4); LYMPH % 18.5 % (27.0-41.0); MEAN CORPUSCULAR HGB 29.9 pg (27.0-31.0); MEAN CORPUSCULAR HGB CONC 32.1 g/dl (33.0-37.0); MEAN PLATELET VOLUME 9.4 fl (9.6-12.3); MONO # 0.6 10*3/uL (0.1-1.0); NEUT # 5.8 10*3/uL (2.3-7.9); NEUT % 62.8 % (47.0-73.0); PLATELET COUNT AUTOMATED 359 10*3/uL (130-400); RED BLOOD COUNT 2.71 10*6/uL (4.10-5.10); RED CELL DISTRI WIDTH 19.3 % (0-14.5); WHITE BLOOD COUNT 9.2 10*3/uL (4.8-10.8)
[2023-11-08 07:31] VITALS: BP 118/53
[2023-11-08 07:33] LABS: BUN 9 mg/dl (9-23); CHLORIDE 107 mmol/L (98-107); POTASSIUM 3.3 mmol/L (3.4-5.1)
[2023-11-08] MEDS ORDERED: Memantine Hydrochloride 5 MG TAB PO SCH (09:00)
[2023-11-08] MEDS ORDERED: RIVASTIGMINE 13.3 MG/24 HR TDM T SCH (09:00)
[2023-11-08] MEDS ORDERED: MAGNESIUM SULFATE 50 ML IV ONE ×2 (10:50→13:15)
[2023-11-08 20:00] VITALS: BP 128/59
[2023-11-08] MEDS ORDERED: POTASSIUM CHLORIDE 20 MEQ TAB PO SCH (21:00)
[2023-11-08] MEDS ORDERED: Ciprofloxacin Hydrochloride 500 MG TAB PO SCH (21:00)
[2023-11-08] MEDS ORDERED: RISPERIDONE 2 MG TAB PO SCH (21:00)
[2023-11-08] MEDS ORDERED: MAGNESIUM OXIDE 400 MG TAB PO SCH (21:00)
[2023-11-09 08:00] VITALS: BP 135/59
[2023-11-09] MEDS ORDERED: RISPERIDONE 1 MG TAB PO SCH (09:00)
[2023-11-09 20:00] VITALS: BP 116/61
[2023-11-10 07:53] VITALS: BP 118/59
[2023-11-10 20:00] VITALS: BP 130/86
[2023-11-11 07:52] VITALS: BP 135/66
[2023-11-11 08:15] LABS: BASO % 0.2 % (0.0-1.0); EOS # 1.1 10*3/uL (0.0-0.4); EOS % 12.7 % (1.0-4.0); HEMATOCRIT 29.3 % (37.0-47.0); LYMPH # 1.6 10*3/uL (1.3-4.4); LYMPH % 17.7 % (27.0-41.0); MEAN CORPUSCULAR HGB 28.9 pg (27.0-31.0); MEAN CORPUSCULAR HGB CONC 31.1 g/dl (33.0-37.0); MEAN PLATELET VOLUME 9.7 fl (9.6-12.3); MONO # 0.6 10*3/uL (0.1-1.0); MONO % 6.3 % (3.0-9.0); NEUT # 5.5 10*3/uL (2.3-7.9); NEUT % 62.9 % (47.0-73.0); PLATELET COUNT AUTOMATED 377 10*3/uL (130-400); RED BLOOD COUNT 3.15 10*6/uL (4.10-5.10); RED CELL DISTRI WIDTH 19.1 % (0-14.5); WHITE BLOOD COUNT 8.8 10*3/uL (4.8-10.8)
[2023-11-11 08:39] LABS: ALKALINE PHOSPHATASE 133 U/L (46-116); BUN 7 mg/dl (9-23); CHLORIDE 103 mmol/L (98-107); POTASSIUM 4.3 mmol/L (3.4-5.1); SGPT/ALT 14 U/L (5-49); TOTAL PROTEIN 5.5 gm/dL (6.0-8.0)
[2023-11-11] MEDS ORDERED: Memantine Hydrochloride 5 MG TAB PO SCH (09:00)
[2023-11-11] MEDS ORDERED: ALPRAZolam 0.25 MG TAB PO ONE (12:45)
[2023-11-11 19:12] VITALS: BP 130/66
[2023-11-11] MEDS ORDERED: Memantine Hydrochloride 10 MG TAB PO SCH (21:00)
[2023-11-12 07:37] VITALS: BP 142/72
[2023-11-12 19:20] VITALS: BP 135/55
[2023-11-12] MEDS ORDERED: Memantine Hydrochloride 10 MG TAB PO SCH (21:00)
[2023-11-12] MEDS ORDERED: RAMELTEON 8 MG TAB PO SCH (21:00)
[2023-11-13] MEDS ORDERED: RISPERDAL1 M1 PO (06:49)
[2023-11-13] MEDS ORDERED: RIVASTIGMINE1 EAC2 T (06:49)
[2023-11-13] MEDS ORDERED: RISPERIDONE2 M2 PO (06:49)
[2023-11-13] MEDS ORDERED: RAMELTEON8 MG PO (06:50)
[2023-11-13] MEDS ORDERED: MEMANTINE HCL10 MG PO (06:50)
[2023-11-13 07:16] LABS: BUN 6 mg/dl (9-23); CHLORIDE 106 mmol/L (98-107); POTASSIUM 3.9 mmol/L (3.4-5.1)
[2023-11-13 07:46] VITALS: BP 121/58
[2023-11-13] MEDS ORDERED: APIXABAN 5 MG TAB PO SCH (09:00)
[2023-11-13] MEDS ORDERED: B121000 MCG/2 IM (13:41)
[2023-11-13] MEDS ORDERED: K-TAB20 MEQ PO (13:48)
[2023-11-13] MEDS ORDERED: MAGNESIUM400 M1 PO (13:49)
== END 2023-11-13 14:14 | disposition home health service (06) | DRG 754 ==
LOC: ED 11:58 → 3N 14:49 → EDHOLD 14:49 → 3N 10-26 14:51
PROVIDERS: Emergency Medicine; Internal Medicine; Internal Medicine Nephrology; Nurse Practitioner; Nurse Practitioner Women's Health; ADMIT Psychiatry & Neurology Psychiatry; ATTEND Psychiatry & Neurology Psychiatry
PROC: GZHZZZZ Group Psychotherapy (ICD-10-PCS; principal; 2023-10-25)
PROC: GZ56ZZZ Individual Psychotherapy, Supportive (ICD-10-PCS; 2023-10-25)
DX: F43.21 Adjustment disorder with depressed mood (principal); F23 Brief psychotic disorder; F33.9 Major depressive disorder, recurrent, unspecified; E43 Unspecified severe protein-calorie malnutrition; E87.20 Acidosis, unspecified; F03.90 Unspecified dementia, unspecified severity, without behavioral disturbance, psychotic disturbance, mood disturbance, and anxiety; J90 Pleural effusion, not elsewhere classified; Z68.45 Body mass index [BMI] 70 or greater, adult; K21.9 Gastro-esophageal reflux disease without esophagitis; F17.210 Nicotine dependence, cigarettes, uncomplicated; D75.839 Thrombocytosis, unspecified; D72.829 Elevated white blood cell count, unspecified; J44.9 Chronic obstructive pulmonary disease, unspecified; K31.84 Gastroparesis; G89.29 Other chronic pain; E11.43 Type 2 diabetes mellitus with diabetic autonomic (poly)neuropathy; N28.89 Other specified disorders of kidney and ureter; E78.5 Hyperlipidemia, unspecified; F41.9 Anxiety disorder, unspecified; E66.01 Morbid (severe) obesity due to excess calories; L60.3 Nail dystrophy; I48.0 Paroxysmal atrial fibrillation; Z88.1 Allergy status to other antibiotic agents; Z88.0 Allergy status to penicillin; Z88.8 Allergy status to other drugs, medicaments and biological substances; Z91.09 Other allergy status, other than to drugs and biological substances; Z79.899 Other long term (current) drug therapy; Z79.01 Long term (current) use of anticoagulants; Z79.2 Long term (current) use of antibiotics; Z90.710 Acquired absence of both cervix and uterus; Z83.3 Family history of diabetes mellitus; Z82.49 Family history of ischemic heart disease and other diseases of the circulatory system

== ENCOUNTER 2023-11-15 20:19 | Emergency (ER) | payer OTHER ==
[~2023-11-15 20:19] MED LIST changes: +ACETAMINOPHEN325 M2 PO; +B121000 MCG/2 IM; +CORTIZONE-1028 GM T; +DEPAKOTE SPRIN125 MG PO; +DOXYCYCLINE HY100 M3 PO; +HALOPERIDOL0.5 MG PO; +K-TAB20 MEQ PO; +LOPERAMIDE HCL2 MG PO; +MAGNESIUM400 M1 PO; +MEMANTINE HCL10 MG PO; +PROBIOTIC250 MG PO; +RAMELTEON8 MG PO; +REMERON15 M2 PO; +RISPERDAL1 M1 PO; +RISPERIDONE2 M2 PO; +RIVASTIGMINE1 EAC2 T; +VISTARIL25 MG PO
[2023-11-15 20:47] LABS: BASO % 0.2 % (0.0-1.0); EOS # 1.4 10*3/uL (0.0-0.4); HEMATOCRIT 34.7 % (37.0-47.0); LYMPH # 2.7 10*3/uL (1.3-4.4); MEAN CELL VOLUME 95.1 fl (81.0-99.0); MEAN CORPUSCULAR HGB 28.5 pg (27.0-31.0); MEAN PLATELET VOLUME 9.3 fl (9.6-12.3); MONO # 0.7 10*3/uL (0.1-1.0); MONO % 5.5 % (3.0-9.0); NEUT # 8.7 10*3/uL (2.3-7.9); PLATELET COUNT AUTOMATED 511 10*3/uL (130-400); RED BLOOD COUNT 3.65 10*6/uL (4.10-5.10); WHITE BLOOD COUNT 13.6 10*3/uL (4.8-10.8)
[2023-11-15 21:05] LABS: ALKALINE PHOSPHATASE 119 U/L (46-116); BUN 8 mg/dl (9-23); CHLORIDE 103 mmol/L (98-107); ETHYL ALCOHOL 3.9 mg/dl (<3); POTASSIUM 4.1 mmol/L (3.4-5.1); SGPT/ALT 17 U/L (5-49); TOTAL PROTEIN 6.2 gm/dL (6.0-8.0)
[2023-11-15 21:16] LABS: BILIRUBIN Negative (Negative); BLOOD Negative (Negative); CLARITY Clear (Clear); COLOR Yellow (Yellow); GLUCOSE 3+ (Negative); KETONE 1+ (Negative); LEUKO ESTERASE Negative (Negative); NITRITE Negative (Negative); SPECIFIC GRAVITY >= 1.030 (1.001-1.030); UROBILINOGEN 0.2 E.U./dl (0.0-1.0)
[2023-11-15 21:23] LABS: URINE AMPHETAMINES Negative (1000ng/ml); URINE BARBITURATES Negative (200ng/ml); URINE BENZODIAZEPINES Positive (200ng/ml); URINE CANNABINOIDS (THC) Negative (50ng/ml); URINE COCAINE Negative (300ng/ml); URINE METHADONE Negative (300ng/ml); URINE OPIATES Negative (300ng/ml); URINE PHENCYCLIDINE Negative (25ng/ml)
[2023-11-15 21:31] LABS: BACTERIA 1+
[2023-11-16] MEDS ORDERED: LORazepam 1 MG TAB PO ONE (03:45)
== END 2023-11-16 11:55 | disposition home or self-care (01) ==
LOC: ED 20:19
PROVIDERS: Internal Medicine
DX: R45.1 Restlessness and agitation (principal); F03.90 Unspecified dementia, unspecified severity, without behavioral disturbance, psychotic disturbance, mood disturbance, and anxiety; E11.9 Type 2 diabetes mellitus without complications; I10 Essential (primary) hypertension; F41.9 Anxiety disorder, unspecified; E78.00 Pure hypercholesterolemia, unspecified; M19.90 Unspecified osteoarthritis, unspecified site; Z88.0 Allergy status to penicillin; Z88.1 Allergy status to other antibiotic agents; Z88.8 Allergy status to other drugs, medicaments and biological substances; Z90.710 Acquired absence of both cervix and uterus; Z90.49 Acquired absence of other specified parts of digestive tract; Z98.890 Other specified postprocedural states; F17.210 Nicotine dependence, cigarettes, uncomplicated; Z86.73 Personal history of transient ischemic attack (TIA), and cerebral infarction without residual deficits

== ENCOUNTER 2023-11-18 16:52 | Emergency (ER) | payer OTHER ==
[~2023-11-18] VITALS: Ht 157.4 cm; Wt 108.0 kg
[2023-11-18] MEDS ORDERED: Dexamethasone Sodium Phospha 20 MG/5 ML VIAL IM ONE (17:40)
[2023-11-18] MEDS ORDERED: diphenhydrAMINE hydrochloride 25 MG CAP PO ONE (17:45)
[2023-11-18] MEDS ORDERED: COLACE 2-IN-11 EACH PO (17:45)
[2023-11-18] MEDS ORDERED: SODIUM POLYSTYRENE SULFONATE 15 GM/60 ML BOT PO ONE (17:45)
[2023-11-18] MEDS ORDERED: PREDNISONE20 M1 PO (17:45)
[2023-11-18] MEDS ORDERED: LACTULOSE 20 GM/30 ML UDC PO ONE (17:45)
[2023-11-18] MEDS ORDERED: BENADRYL ALLERG25 M5 PO (17:45)
== END 2023-11-18 18:01 | disposition home or self-care (01) ==
LOC: ED 16:52
DX: K59.00 Constipation, unspecified (principal); R21 Rash and other nonspecific skin eruption; E11.9 Type 2 diabetes mellitus without complications; I10 Essential (primary) hypertension; F41.9 Anxiety disorder, unspecified; E78.00 Pure hypercholesterolemia, unspecified; M19.90 Unspecified osteoarthritis, unspecified site; Z88.0 Allergy status to penicillin; Z88.1 Allergy status to other antibiotic agents; Z88.8 Allergy status to other drugs, medicaments and biological substances; Z90.710 Acquired absence of both cervix and uterus; Z98.890 Other specified postprocedural states; Z90.49 Acquired absence of other specified parts of digestive tract; F17.210 Nicotine dependence, cigarettes, uncomplicated; Z86.73 Personal history of transient ischemic attack (TIA), and cerebral infarction without residual deficits

== ENCOUNTER 2023-11-27 00:01 | Emergency (ER) | payer OTHER ==
[~2023-11-27] VITALS: Ht 157.4 cm; Wt 108.0 kg
[~2023-11-27 00:01] MED LIST changes: +BENADRYL ALLERG25 M5 PO; +COLACE 2-IN-11 EACH PO; +PREDNISONE20 M1 PO
[2023-11-27 00:29] LABS: BASO % 0.2 % (0.0-1.0); EOS # 0.7 10*3/uL (0.0-0.4); EOS % 8.3 % (1.0-4.0); HEMATOCRIT 30.1 % (37.0-47.0); LYMPH # 2.6 10*3/uL (1.3-4.4); LYMPH % 29.5 % (27.0-41.0); MEAN CELL VOLUME 88.3 fl (81.0-99.0); MEAN CORPUSCULAR HGB 26.7 pg (27.0-31.0); MEAN CORPUSCULAR HGB CONC 30.2 g/dl (33.0-37.0); MEAN PLATELET VOLUME 8.7 fl (9.6-12.3); MONO # 0.6 10*3/uL (0.1-1.0); NEUT # 4.8 10*3/uL (2.3-7.9); NEUT % 54.8 % (47.0-73.0); PLATELET COUNT AUTOMATED 442 10*3/uL (130-400); RED BLOOD COUNT 3.41 10*6/uL (4.10-5.10); RED CELL DISTRI WIDTH 18.7 % (0-14.5); WHITE BLOOD COUNT 8.7 10*3/uL (4.8-10.8)
[2023-11-27] MEDS ORDERED: FLUCONAZOLE 100 MG TAB PO ONE (00:35)
[2023-11-27] MEDS ORDERED: NYSTATIN 15 GM BOT T ONE (00:35)
[2023-11-27] MEDS ORDERED: Ondansetron Hydrochloride 4 MG TAB SL ONE (00:35)
[2023-11-27] MEDS ORDERED: Acetaminophen/Hydrocodone 5 MG/325 MG TABLET PO ONE (00:35)
[2023-11-27] MEDS ORDERED: NYSTATIN CREAM 15 GM TUBE T ONE (07:52)
== END 2023-11-27 01:53 | disposition home or self-care (01) ==
LOC: ED 00:01
PROVIDERS: Internal Medicine
DX: B37.2 Candidiasis of skin and nail (principal); D64.9 Anemia, unspecified; E11.9 Type 2 diabetes mellitus without complications; I10 Essential (primary) hypertension; F41.9 Anxiety disorder, unspecified; E78.00 Pure hypercholesterolemia, unspecified; M19.90 Unspecified osteoarthritis, unspecified site; Z88.8 Allergy status to other drugs, medicaments and biological substances; Z88.0 Allergy status to penicillin; Z88.1 Allergy status to other antibiotic agents; Z90.710 Acquired absence of both cervix and uterus; Z98.890 Other specified postprocedural states; Z90.49 Acquired absence of other specified parts of digestive tract; F17.210 Nicotine dependence, cigarettes, uncomplicated; Z86.73 Personal history of transient ischemic attack (TIA), and cerebral infarction without residual deficits

== ENCOUNTER 2023-12-17 13:52 | Emergency (ER) | payer OTHER ==
[~2023-12-17] VITALS: Ht 157.4 cm
[2023-12-17] MEDS ORDERED: IOHEXOL 300 MG/ML 100 ML VIAL IV ONE (14:35)
[2023-12-17 14:44] LABS: BASO % 0.2 % (0.0-1.0); EOS # 0.3 10*3/uL (0.0-0.4); EOS % 2.9 % (1.0-4.0); HEMATOCRIT 32.1 % (37.0-47.0); LYMPH % 28.3 % (27.0-41.0); MEAN CELL VOLUME 79.7 fl (81.0-99.0); MEAN CORPUSCULAR HGB 24.8 pg (27.0-31.0); MEAN CORPUSCULAR HGB CONC 31.2 g/dl (33.0-37.0); MEAN PLATELET VOLUME 8.6 fl (9.6-12.3); MONO # 0.6 10*3/uL (0.1-1.0); MONO % 5.3 % (3.0-9.0); NEUT # 6.6 10*3/uL (2.3-7.9); NEUT % 62.8 % (47.0-73.0); PLATELET COUNT AUTOMATED 473 10*3/uL (130-400); RED BLOOD COUNT 4.03 10*6/uL (4.10-5.10); RED CELL DISTRI WIDTH 19.8 % (0-14.5); WHITE BLOOD COUNT 10.5 10*3/uL (4.8-10.8)
[2023-12-17 15:02] LABS: ALKALINE PHOSPHATASE 100 U/L (46-116); CHLORIDE 100 mmol/L (98-107); POTASSIUM 2.6 mmol/L (3.4-5.1); SGPT/ALT 9 U/L (5-49); TOTAL PROTEIN 5.7 gm/dL (6.0-8.0)
[2023-12-17 15:33] LABS: BUN < 5 mg/dl (9-23)
[2023-12-17] MEDS ORDERED: Lactated Ringer's Solution 1,000 ML IV SCH (15:50)
[2023-12-17] MEDS ORDERED: MAGNESIUM SULFATE 50 ML IV ONE (15:50)
[2023-12-17] MEDS ORDERED: POTASSIUM CHLORIDE 20 MEQ TAB PO ONE (15:50)
[2023-12-17] MEDS ORDERED: Potassium Bicarbonate/Potass 25 MEQ TAB PO ONE (15:55)
[2023-12-17] MEDS ORDERED: Ceftriaxone Sodium 1 GM/10 ML SYR IV ONE (18:00)
[2023-12-17] MEDS ORDERED: CEPHALEXIN500 M1 PO (18:34)
[2023-12-17] MEDS ORDERED: CALCIUM500 M1 PO (18:34)
[2023-12-17] MEDS ORDERED: POTASSIUM CHLO20 ME3 PO (18:34)
== END 2023-12-17 18:36 | disposition left against medical advice (07) ==
LOC: ED 13:52
PROVIDERS: Emergency Medicine
DX: K52.9 Noninfective gastroenteritis and colitis, unspecified (principal); E83.51 Hypocalcemia; E87.6 Hypokalemia; E83.42 Hypomagnesemia; N39.0 Urinary tract infection, site not specified; R11.2 Nausea with vomiting, unspecified; Z86.73 Personal history of transient ischemic attack (TIA), and cerebral infarction without residual deficits; E11.9 Type 2 diabetes mellitus without complications; F41.9 Anxiety disorder, unspecified; E78.00 Pure hypercholesterolemia, unspecified; M19.90 Unspecified osteoarthritis, unspecified site; F17.210 Nicotine dependence, cigarettes, uncomplicated; Z88.0 Allergy status to penicillin; Z88.1 Allergy status to other antibiotic agents; Z88.8 Allergy status to other drugs, medicaments and biological substances; Z90.710 Acquired absence of both cervix and uterus; Z90.49 Acquired absence of other specified parts of digestive tract; Z98.890 Other specified postprocedural states

== ENCOUNTER 2024-01-05 19:22 | Inpatient (IN) | payer OTHER ==
[~2024-01-05] VITALS: Ht 167.6 cm; Wt 86.2 kg
[~2024-01-05 19:22] MED LIST changes: +CALCIUM500 M1 PO; +CEPHALEXIN500 M1 PO; +POTASSIUM CHLO20 ME3 PO
[2024-01-05 19:26] VITALS: BP 143/98
[2024-01-05 20:08] LABS: BILIRUBIN Negative (Negative); BLOOD Negative (Negative); CLARITY Cloudy (Clear); COLOR Dark Yellow (Yellow); GLUCOSE Negative (Negative); KETONE Negative (Negative); LEUKO ESTERASE 1+ (Negative); NITRITE Negative (Negative)
[2024-01-05 20:09] LABS: BASO % 0.2 % (0.0-1.0); EOS % 0.1 % (1.0-4.0); HEMATOCRIT 35.1 % (37.0-47.0); LYMPH # 2.1 10*3/uL (1.3-4.4); LYMPH % 10.9 % (27.0-41.0); MEAN CELL VOLUME 73.4 fl (81.0-99.0); MEAN CORPUSCULAR HGB 24.3 pg (27.0-31.0); MEAN PLATELET VOLUME 8.8 fl (9.6-12.3); MONO # 0.6 10*3/uL (0.1-1.0); MONO % 3.2 % (3.0-9.0); NEUT % 84.9 % (47.0-73.0); NUCLEATED RED BLOOD CELL 0.2 % (0.0-0.0); PLATELET COUNT AUTOMATED 444 10*3/uL (130-400); RED BLOOD COUNT 4.78 10*6/uL (4.10-5.10); RED CELL DISTRI WIDTH 20.6 % (0-14.5); WHITE BLOOD COUNT 18.9 10*3/uL (4.8-10.8)
[2024-01-05 20:20] LABS: BACTERIA TRACE; EPITHELIAL CELLS 21-30; MUCOUS 3+
[2024-01-05] MEDS ORDERED: SODIUM CHLORIDE 0.9% 1,000 ML IV ONE (20:20)
[2024-01-05 20:51] LABS: BUN 22 mg/dl (9-23)
[2024-01-05 20:52] LABS: CHLORIDE 84 mmol/L (98-107); POTASSIUM 3.3 mmol/L (3.4-5.1); TOTAL PROTEIN 6.2 gm/dL (6.0-8.0)
[2024-01-05 20:53] LABS: ALKALINE PHOSPHATASE 106 U/L (46-116); CPK 159 U/L (34-171); SGPT/ALT 13 U/L (5-49)
[2024-01-05] MEDS ORDERED: MAGNESIUM SULFATE 100 ML IV ONE (21:00)
[2024-01-05] MEDS ORDERED: CALCIUM GLUC IN NACL, ISO-OSM 100 ML IV ONE (21:05)
[2024-01-05] MEDS ORDERED: Vancomycin Hydrochloride 250 ML IV ONE (21:15)
[2024-01-05 21:19] VITALS: BP 100/80
[2024-01-05] MEDS ORDERED: POTASSIUM CHLORIDE 20 MEQ TAB PO ONE (21:45)
[2024-01-05] MEDS ORDERED: TEMAZEPAM 15 MG CAP PO PRN (22:05)
[2024-01-05] MEDS ORDERED: MORPHINE Sulfate 2 MG/ML SYR IV PRN (22:05)
[2024-01-05] MEDS ORDERED: Acetaminophen/Hydrocodone 5 MG/325 MG TABLET PO PRN (22:05)
[2024-01-05] MEDS ORDERED: DEXTROSE 10 % IN WATER 250 ML IV PRN (22:05)
[2024-01-05] MEDS ORDERED: methylPREDNISolone sod succ 40 MG VIAL IV SCH (22:15)
[2024-01-05] MEDS ORDERED: Albuterol Sulf/Ipratropium 3 ML VIAL NEB PRN (22:15)
[2024-01-05] MEDS ORDERED: Meropenem 1 GM in SODIUM CHLORIDE 0.9% 100 ML IV SCH (22:20)
[2024-01-05] MEDS ORDERED: Enoxaparin Sodium 100 MG/ML SYR SC SCH (22:25)
[2024-01-05 23:09] VITALS: BP 105/68
[2024-01-06] VITALS (13 sets, daily range): BP systolic 70–119; BP diastolic 30–80
[2024-01-06] MEDS ORDERED: SODIUM CHLORIDE 0.9% 1,000 ML IV ONE ×2 (00:55→15:25)
[2024-01-06 02:30] LABS: POTASSIUM 2.8 mmol/L (3.4-5.1)
[2024-01-06] MEDS ORDERED: POTASSIUM CHLORIDE 20 MEQ TAB PO ONE ×2 (02:35→07:30)
[2024-01-06] MEDS ORDERED: MAGNESIUM SULFATE 50 ML IV ONE (02:40)
[2024-01-06] MEDS ORDERED: POTASSIUM CHLORIDE IN WATER 100 ML IV SCH (03:00)
[2024-01-06 04:53] LABS: MEAN CELL VOLUME 73.7 fl (81.0-99.0); MEAN CORPUSCULAR HGB CONC 32.5 g/dl (33.0-37.0); MEAN PLATELET VOLUME 8.9 fl (9.6-12.3); NUCLEATED RED BLOOD CELL 0.1 10*3/uL (0.0-0.0); NUCLEATED RED BLOOD CELL 0.3 % (0.0-0.0); PLATELET COUNT AUTOMATED 371 10*3/uL (130-400); RED BLOOD COUNT 4.34 10*6/uL (4.10-5.10); WHITE BLOOD COUNT 17.5 10*3/uL (4.8-10.8)
[2024-01-06 04:59] LABS: MANUAL DIFF REFLEX YES
[2024-01-06 05:26] LABS: PLATELET SUFFICIENCY NORMAL (NORMAL); TOTAL CELLS COUNTED 100 #CELLS
[2024-01-06 05:35] LABS: POTASSIUM 3.1 mmol/L (3.4-5.1)
[2024-01-06] MEDS ORDERED: Pantoprazole Sodium 40 MG VIAL IV SCH (06:00)
[2024-01-06] MEDS ORDERED: INSULIN LISPRO 1 UNIT/0.01 ML SQ SCH (07:30)
[2024-01-06] MEDS ORDERED: SODIUM CHLORIDE 0.45% IV ONE (07:45)
[2024-01-06] MEDS ORDERED: POTASSIUM CHLORIDE 40 MEQ IV ONE (07:45)
[2024-01-06] MEDS ORDERED: SODIUM BICARBONATE 75 MEQ IV ONE (07:45)
[2024-01-06 08:34] LABS: POTASSIUM 3.3 mmol/L (3.4-5.1)
[2024-01-06] MEDS ORDERED: PERMETHRIN 60 GM TUBE T ONE (12:30)
[2024-01-06] MEDS ORDERED: PERMETHRIN T ONE (12:30)
[2024-01-06 14:25] LABS: TOTAL PROTEIN 5.3 gm/dL (6.0-8.0)
[2024-01-06 14:41] LABS: POTASSIUM 4.3 mmol/L (3.4-5.1)
[2024-01-06] MEDS ORDERED: SODIUM CHLORIDE IV ONE (16:30)
[2024-01-06] MEDS ORDERED: STERILE IV SCH (17:00)
[2024-01-06] MEDS ORDERED: WATER IV SCH (17:00)
[2024-01-06] MEDS ORDERED: SODIUM BICARBONATE IV SCH (17:00)
[2024-01-06] MEDS ORDERED: CALCIUM GLUC IN NACL, ISO-OSM 100 ML IV SCH (17:00)
[2024-01-06 18:52] LABS: URINE CHLORIDE, RANDOM < 20 mmol/L
[2024-01-06] MEDS ORDERED: NOREPINEPHRINE BITARTRATE/D5W 250 ML IV SCH (19:20)
[2024-01-06 20:29] LABS: POTASSIUM 4.7 mmol/L (3.4-5.1)
[2024-01-06 20:30] LABS: TOTAL PROTEIN 5.1 gm/dL (6.0-8.0)
[2024-01-06] MEDS ORDERED: SILVER SULFADIAZINE 25 GM TUBE T SCH (22:00)
[2024-01-06] MEDS ORDERED: LIDOCAINE 5% ANORECTAL CREAM T SCH (22:00)
[2024-01-07] VITALS (7 sets, daily range): BP systolic 53–118; BP diastolic 35–78
[2024-01-07 00:10] LABS: ALKALINE PHOSPHATASE 96 U/L (46-116); BUN 19 mg/dl (9-23); CHLORIDE 91 mmol/L (98-107); POTASSIUM 4.8 mmol/L (3.4-5.1); SGPT/ALT 13 U/L (5-49); TOTAL PROTEIN 5.3 gm/dL (6.0-8.0)
[2024-01-07] MEDS ORDERED: MAGNESIUM SULFATE 50 ML IV ONE (01:15)
[2024-01-07] MEDS ORDERED: CALCIUM GLUC IN NACL, ISO-OSM 100 ML IV SCH (02:00)
[2024-01-07] MEDS ORDERED: Amiodarone Hydrochloride 150 MG,IV 1 EA in DEXTROSE 5% 100 ML IV ONE (02:40)
[2024-01-07] MEDS ORDERED: Amiodarone Hydrochloride 900 MG in DEXTROSE 5% 500 ML IV SCH (02:40)
[2024-01-07] MEDS ORDERED: Amiodarone Hydrochloride 150 MG/3 ML VIAL IV ONE ×5 (02:54→03:20)
[2024-01-07] MEDS ORDERED: DEXTROSE 5% 100 ML IV ONE (02:54)
[2024-01-07] MEDS ORDERED: CALCIUM GLUCONATE 1 GM/10 ML VIAL ONE ×2 (02:55→02:58)
[2024-01-07] MEDS ORDERED: SODIUM CHLORIDE 0.9% 100 ML IV ONE ×2 (02:55→02:58)
[2024-01-07] MEDS ORDERED: SODIUM CHLORIDE 0.9% 500 ML IV ONE (03:06)
[2024-01-07] MEDS ORDERED: HEPARIN SODIUM 250 ML IV SCH (04:20)
[2024-01-07 05:18] LABS: ACT PARTIAL THROMBO TIME 52.4 SECONDS (20.0-32.1)
[2024-01-07 05:31] LABS: BUN 19 mg/dl (9-23); CHLORIDE 91 mmol/L (98-107); POTASSIUM 4.5 mmol/L (3.4-5.1)
[2024-01-07 05:58] LABS: ALKALINE PHOSPHATASE 91 U/L (46-116); BUN 17 mg/dl (9-23); CHLORIDE 92 mmol/L (98-107); POTASSIUM 4.5 mmol/L (3.4-5.1); SGPT/ALT 12 U/L (5-49); TOTAL PROTEIN 4.9 gm/dL (6.0-8.0)
[2024-01-07 05:59] LABS: ALKALINE PHOSPHATASE 92 U/L (46-116); BUN 21 mg/dl (9-23); CHLORIDE 89 mmol/L (98-107); POTASSIUM 4.5 mmol/L (3.4-5.1); SGPT/ALT 12 U/L (5-49); TOTAL PROTEIN 4.9 gm/dL (6.0-8.0)
[2024-01-07] MEDS ORDERED: SODIUM CHLORIDE 0.9% IV ONE (06:00)
[2024-01-07] MEDS ORDERED: VANCOMYCIN HYDROCHLORIDE IV ONE (06:00)
[2024-01-07 06:18] LABS: HEMATOCRIT 30.1 % (37.0-47.0); MEAN CELL VOLUME 71.3 fl (81.0-99.0); MEAN CORPUSCULAR HGB 24.4 pg (27.0-31.0); MEAN CORPUSCULAR HGB CONC 34.2 g/dl (33.0-37.0); MEAN PLATELET VOLUME 9.3 fl (9.6-12.3); NUCLEATED RED BLOOD CELL 0.3 10*3/uL (0.0-0.0); NUCLEATED RED BLOOD CELL 1.3 % (0.0-0.0); PLATELET COUNT AUTOMATED 480 10*3/uL (130-400); RED BLOOD COUNT 4.22 10*6/uL (4.10-5.10); RED CELL DISTRI WIDTH 20.8 % (0-14.5)
[2024-01-07 06:19] LABS: MANUAL DIFF REFLEX YES
[2024-01-07 07:03] LABS: BURR CELLS MODERATE; MICROCYTOSIS SLIGHT; OVALOCYTES FEW; PLATELET SUFFICIENCY HIGH (NORMAL); POLYCHROMASIA SLIGHT; SCHISTOCYTES FEW; TOTAL CELLS COUNTED 100 #CELLS
[2024-01-07] MEDS ORDERED: SODIUM CHLORIDE IV SCH (07:25)
[2024-01-07] MEDS ORDERED: VANCOMYCIN/WATER FOR INJ (PEG) 350 ML IV SCH (08:00)
[2024-01-07] MEDS ORDERED: ASPIRIN 325 MG TAB PO SCH (09:00)
[2024-01-07] MEDS ORDERED: DEXTROSE 5% 500 ML BAG IV ONE (09:25)
== END 2024-01-07 07:15 | disposition short-term general hospital (02) | DRG 720 ==
LOC: ED 19:22 → EDHOLD 21:54
PROVIDERS: Internal Medicine; Internal Medicine Nephrology; Ophthalmology Retina Specialist; Student in an Organized Health Care Education/Training Program; ADMIT Internal Medicine; ATTEND Internal Medicine
PROC: 02H633Z Insertion of Infusion Device into Right Atrium, Percutaneous Approach (ICD-10-PCS; principal; 2024-01-07)
PROC: B548ZZA Ultrasonography of Superior Vena Cava, Guidance (ICD-10-PCS; 2024-01-07)
DX: A41.9 Sepsis, unspecified organism (principal); N17.0 Acute kidney failure with tubular necrosis; R65.21 Severe sepsis with septic shock; D61.818 Other pancytopenia; E43 Unspecified severe protein-calorie malnutrition; J44.0 Chronic obstructive pulmonary disease with (acute) lower respiratory infection; J18.9 Pneumonia, unspecified organism; I24.9 Acute ischemic heart disease, unspecified; J44.1 Chronic obstructive pulmonary disease with (acute) exacerbation; E87.1 Hypo-osmolality and hyponatremia; L97.829 Non-pressure chronic ulcer of other part of left lower leg with unspecified severity; L97.819 Non-pressure chronic ulcer of other part of right lower leg with unspecified severity; E83.51 Hypocalcemia; Z68.45 Body mass index [BMI] 70 or greater, adult; E87.6 Hypokalemia; L03.116 Cellulitis of left lower limb; E83.42 Hypomagnesemia; F03.90 Unspecified dementia, unspecified severity, without behavioral disturbance, psychotic disturbance, mood disturbance, and anxiety; E11.22 Type 2 diabetes mellitus with diabetic chronic kidney disease; E11.43 Type 2 diabetes mellitus with diabetic autonomic (poly)neuropathy; K31.84 Gastroparesis; F17.210 Nicotine dependence, cigarettes, uncomplicated; N18.9 Chronic kidney disease, unspecified; K21.9 Gastro-esophageal reflux disease without esophagitis; R65.20 Severe sepsis without septic shock; B02.29 Other postherpetic nervous system involvement; M43.16 Spondylolisthesis, lumbar region; I48.0 Paroxysmal atrial fibrillation; I87.8 Other specified disorders of veins; E11.51 Type 2 diabetes mellitus with diabetic peripheral angiopathy without gangrene; Z88.0 Allergy status to penicillin; Z88.8 Allergy status to other drugs, medicaments and biological substances; Z91.09 Other allergy status, other than to drugs and biological substances; Z79.899 Other long term (current) drug therapy; Z90.710 Acquired absence of both cervix and uterus; Z82.49 Family history of ischemic heart disease and other diseases of the circulatory system; Z83.3 Family history of diabetes mellitus; Z71.6 Tobacco abuse counseling